=== PATIENT | male | born 1940 | race Caucasian/White ===

== ENCOUNTER 2021-03-25 05:05 | Inpatient (IN) | payer OTHER, MEDICARE ==
--- NOTE | 2021-03-25 05:36 | ED ---
Chest Pain HPI - General Chief Complaint: Chest Pain Stated Complaint: Chest Pain Time Seen by Provider: 03/25/21 05:14 Source: patient, EMS Mode of arrival: EMS Limitations: no limitations - History of Present Illness Initial Comments: This patient is an 80-year-old man who presents to be evaluate for epigastric chest pain that it started a number of hours ago. He describes as being gas- like, but states that it did not improve after he had belched and notes that it was relieved by nitroglycerin that EMS had given him. Patient did not have any associated anginal symptoms. MD Complaint: chest pain Onset/Timin -: hour(s) Onset: during rest Pain Location: epigastric Pain Radiation: none Severity: moderate Quality: other ("Like gas") Consistency: constant Improves With: nitroglycerin Worsens With: nothing Treatments Prior to Arrival: aspirin, nitroglycerin - Related Data Allergies Allergy/AdvReac Type Severity Reaction Status Date / Time Penicillins AdvReac Rash/Hives Verified 03/25/21 05:16 Review of Systems ROS Statement: Those systems with pertinent positive or pertinent negative responses have been documented in the HPI. ROS Other: All systems not noted in ROS Statement are negative. Constitutional: Denies: fever, chills Respiratory: Reports: as per HPI, cough (Chronic). Denies: dyspnea Cardiovascular: Reports: as per HPI, chest pain. Denies: palpitations, orthopnea, edema, syncope Gastrointestinal: Denies: abdominal pain, nausea, vomiting, diarrhea, constipation Genitourinary: Denies: dysuria Skin: Denies: rash Neurological: Denies: headache, weakness EKG Findings - EKG Results: EKG: interpreted by LEONIDAS, sinus rhythm (With PVC, rate 75 bpm) - Blocks, [place], Hypertrophy, ST Abn: AV and intraventricular conduction: 1 AV block, right bundle branch block (fixed/intermittent, complete/incomplete), left anterior fascicular block Past Medical History Past Medical History: Chest Pain / Angina, COPD, Hypertension Additional Past Medical History / Comment(s): at home 02 4lpm History of Any Multi-Drug Resistant Organisms: None Reported Past Surgical History: Hernia Repair Past Psychological History: No Psychological Hx Reported Smoking Status: Former smoker Past Alcohol Use History: Daily Past Drug Use History: None Reported General Exam Limitations: no limitations General appearance: alert, in no apparent distress Head exam: Present: atraumatic, normocephalic Eye exam: Present: normal appearance. Absent: scleral icterus, conjunctival injection ENT exam: Present: normal oropharynx Neck exam: Present: normal inspection Respiratory exam: Present: normal lung sounds bilaterally, rhonchi. Absent: respiratory distress, wheezes, rales, stridor Cardiovascular Exam: Present: regular rate, normal rhythm, normal heart sounds. Absent: systolic murmur, diastolic murmur, rubs, gallop GI/Abdominal exam: Present: soft, distended. Absent: tenderness, guarding, rebound, rigid, mass Extremities exam: Present: normal inspection, normal capillary refill. Absent: pedal edema, calf tenderness Back exam: Present: normal inspection. Absent: CVA tenderness (R), CVA tenderness (L) Neurological exam: Present: alert Skin exam: Present: warm, dry, intact, normal color. Absent: rash Course Vital Signs 03/25/21 03/25/21 03/25/21 05:07 05:16 06:58 Temperature 98.7 F Pulse Rate 75 73 Pulse Rate [ 76 Algologist ] Respiratory 18 16 Rate Blood Pressure 142/75 143/74 O2 Sat by Pulse 98 95 Oximetry Disposition Clinical Impression: Chest pain Disposition: ADMITTED IP TO THIS HOSP Condition: Fair Instructions (If sedation given, give patient instructions): Chest Pain (ED) Is patient prescribed a controlled substance at d/c from ED?: No Referrals: [facility],Clinic [Primary Care Provider] - 1-2 days
[2021-03-25 05:42] LABS: Basophils % (A) 0 %; Eosinophils # (A) 0.2 k/uL (0-0.7); Eosinophils % (A) 4 %; HCT 33.5 % (39.0-53.0); HGB 11.8 gm/dL (13.0-17.5); Lymphocytes # (A) 0.8 k/uL (1.0-4.8); Lymphocytes % (A) 15 %; MCH 33.1 pg (25.0-35.0); MCHC 35.2 g/dL (31.0-37.0); MCV 94.1 fL (80.0-100.0); Mean Platelet Volume 7.3; Monocytes # (A) 0.3 k/uL (0-1.0); Monocytes % (A) 5 %; Neutrophils % (A) 75 %; Platelet Count 173 k/uL (150-450); RBC 3.56 m/uL (4.30-5.90); RDW 12.8 % (11.5-15.5); WBC 5.4 k/uL (3.8-10.6)
[2021-03-25 05:49] LABS: INR 0.9 (<1.2); Prothrombin Time 10.1 sec (9.0-12.0)
[2021-03-25 05:50] LABS: Partial Thromboplastin Time 23.9 sec (22.0-30.0)
[2021-03-25 05:51] LABS: ALT 9 U/L (4-49); AST 17 U/L (17-59); African American GFR (CKD) >90 (>60 ml/min/1.73 sqM); Albumin 3.3 g/dL (3.5-5.0); Alkaline Phosphatase 67 U/L (38-126); Amylase 34 U/L (30-110); Anion Gap 6 mmol/L; Blood Urea Nitrogen 17 mg/dL (9-20); Calcium 8.5 mg/dL (8.4-10.2); Carbon Dioxide 30 mmol/L (22-30); Chloride 104 mmol/L (98-107); Glucose 157 mg/dL (74-99); Lipase 172 U/L (23-300); Magnesium 1.5 mg/dL (1.6-2.3); Non-African American GFR(CKD) 82 (>60 ml/min/1.73 sqM); Potassium 4.3 mmol/L (3.5-5.1); Sodium 140 mmol/L (137-145); Total Bilirubin 0.7 mg/dL (0.2-1.3); Total Protein 5.9 g/dL (6.3-8.2)
--- NOTE | 2021-03-25 06:13 | XR ---
EXAM: XR Chest, 1 View CLINICAL HISTORY: Chest pain. TECHNIQUE: Frontal view of the chest. COMPARISON: 10/01/2017. FINDINGS: Lungs: There is patchy airspace disease at the left lung base differential etiologies which include pneumonia. Pleural space: Unremarkable. No pneumothorax. Heart: Cardiomegaly. Mediastinum: Unremarkable. Bones/joints: Unremarkable. Upper abdomen: There is a lucency subtending the right hemidiaphragm. Free intra-abdominal air cannot be excluded. This finding is equivocal. Other findings: Patient is rotated right of midline. IMPRESSION: 1. Lucency is noted subtending what appears to represent the right hemidiaphragm. Small quantity of free intraperitoneal air cannot be excluded. This finding is equivocal. Reimaging with better inspiration and lateral view is advised. 2. Cardiomegaly. 3. Patchy airspace disease at the left lung base possibly on the basis of pneumonia. Clinical correlation is advised. 4. Osteopenia. <MYCVCSECTION> Communications: 03/25/21 06:14 Call Doctor Regarding Above results, called Dr. Lainez on 03/25 06:13 (-04:00)
--- NOTE | 2021-03-25 06:35 | XR ---
EXAM: XR Chest, 2 Views CLINICAL HISTORY: ITS.REASON XR Reason: chest pain TECHNIQUE: Frontal and lateral views of the chest. COMPARISON: Earlier single view the chest. FINDINGS: Lungs: Repeat AP and lateral views of the chest reveals subsegmental atelectasis at the lung bases. Pleural space: Unremarkable. No pneumothorax. Heart: Cardiomediastinal silhouette unremarkable. Mediastinum: See above. Bones/joints: Osteopenia. Upper abdomen: No evidence of free intra-abdominal air is noted in the repeat study. IMPRESSION: 1. No evidence of free intra-abdominal air on repeat evaluation could 2. Subsegmental atelectasis is noted at the lung bases. 3. Hypoaeration. 4. Osteopenia.
[2021-03-25] MEDS ORDERED: NITROGLYCERIN SL TABS 0.4 MG TAB SUBLINGUAL PRN (07:05)
--- NOTE | 2021-03-25 09:20 | P.CRDCN ---
History of Present Illness Consult date: 03/25/21 Chief complaint: Chest discomfort History of present illness: This is an 80-year-old gentleman with request to see as a consult here on the observation unit for chest discomfort. The patient is known to have coronary artery disease and he [facility] [place]. He never seen by any salt washer here. He underwent stenting with unknown details at this point and he stayed long time ago. This time she woke up from sleep complaining of is calm 4. He is pointing to the epigastric area. No pain in the chest. No shortness of breath or sweating or dizziness or lightheadedness or loss of consciousness or syncope. On examination he does have clearly epigastric discomfort. He stated that the pain in the epigastric area is radiating to his back. The patient stated that he drinks alcohol every day and he drinks 3 shots of whiskey every day. The epigastric discomfort could be secondary to pancreatitis. Primary care team is on the case. The first set of troponin came in to be unremarkable. 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 At this point we will rule out intra-abdominal process. We'll follow-up with the serial cardiac enzymes and will obtain an echocardiogram was Doppler. Past Medical History Past Medical History: Chest Pain / Angina, COPD, Hypertension Additional Past Medical History / Comment(s): at home 02 4lpm History of Any Multi-Drug Resistant Organisms: None Reported Past Surgical History: Hernia Repair Past Psychological History: No Psychological Hx Reported Smoking Status: Former smoker Past Alcohol Use History: Daily Past Drug Use History: None Reported Medications and Allergies Allergies Allergy/AdvReac Type Severity Reaction Status Date / Time Penicillins AdvReac Rash/Hives Verified 03/25/21 05:16 Physical Exam Vitals: Vital Signs Temp Pulse Pulse Pulse Resp BP BP 03/25/21 09:00 97.9 F 89 18 151/77 03/25/21 08:28 97.9 F 79 16 168/65 03/25/21 06:58 73 16 143/74 03/25/21 05:16 76 03/25/21 05:07 98.7 F 75 18 142/75 Pulse Ox 03/25/21 09:00 94 L 03/25/21 08:28 90 L 03/25/21 06:58 95 03/25/21 05:16 03/25/21 05:07 98 Intake and Output 03/24/21 03/25/21 03/25/21 22:59 06:59 14:59 Other: Weight 90.718 kg - Constitutional General appearance: no acute distress - Respiratory Respiratory: bilateral: rales - Cardiovascular Rhythm: regular Results 03/25/21 05:33 03/25/21 05:33 Cardiac Enzymes 03/25/21 03/25/21 Range/Units 05:33 05:33 AST 17 (17-59) U/L Troponin I <0.012 (0.000-0.034) ng/mL Coagulation 03/25/21 Range/Units 05:33 PT 10.1 (9.0-12.0) sec APTT 23.9 (22.0-30.0) sec CBC 03/25/21 Range/Units 05:33 WBC 5.4 (3.8-10.6) k/uL RBC 3.56 L (4.30-5.90) m/uL Hgb 11.8 L (13.0-17.5) gm/dL Hct 33.5 L (39.0-53.0) % Plt Count 173 (150-450) k/uL Comprehensive Metabolic Panel 03/25/21 Range/Units 05:33 Sodium 140 (137-145) mmol/L Potassium 4.3 (3.5-5.1) mmol/L Chloride 104 (98-107) mmol/L Carbon Dioxide 30 (22-30) mmol/L BUN 17 (9-20) mg/dL Creatinine 0.84 (0.66-1.25) mg/dL Glucose 157 H (74-99) mg/dL Calcium 8.5 (8.4-10.2) mg/dL AST 17 (17-59) U/L ALT 9 (4-49) U/L Alkaline Phosphatase 67 (38-126) U/L Total Protein 5.9 L (6.3-8.2) g/dL Albumin 3.3 L (3.5-5.0) g/dL Current Medications Generic Name Dose Route Start Last Admin Trade Name Freq PRN Reason Stop Dose Admin Aspirin 325 mg 03/26/21 09:00 Aspirin 325 Mg Tab PO DAILY PASQUALE Nitroglycerin 0.4 mg 03/25/21 07:05 Nitroglycerin Sl Tabs 0.4 Mg Tab SUBLINGUAL Q5M PRN Chest Pain Nitroglycerin 1 inch 03/25/21 12:00 Nitroglycerin Oint 1 Inch/Gm Packet TOPICAL Q6HR PASQUALE Intake and Output 03/24/21 03/25/21 03/25/21 22:59 06:59 14:59 Other: Weight 90.718 kg 03/25/21 05:33 03/25/21 05:33 Assessment and Plan Assessment: Assessment #1 epigastric discomfort. No chest pain or chest discomfort #2 coronary artery disease and prior stenting with unknown details #3 hypertension #4 excessive alcohol use Plan #1 rule out acute coronary event #2 rule out intra-abdominal process #3 follow-up with the serial cardiac enzymes #4 obtain an echocardiogram was Doppler #5 follow-up with the patient #6 start the patient on metoprolol succinate
[2021-03-25] MEDS: NITROGLYCERIN OINT 1 INCH/GM PACKET TOPICAL SCH ×3 (12:17→22:55)
[2021-03-25] MEDS: HYDROcodone/APAP 5-325MG 1 EACH TAB PO PRN ×2 (13:16→19:39)
[2021-03-25] MEDS: IOPAMIDOL CONTRAST (ORAL USE) VIAL PO PRN ×2 (13:21→14:13)
[2021-03-25] MEDS: IPRATROPIUM-ALBUTEROL 3 ML NEB INHALATION SCH ×2 (15:32→20:11)
--- NOTE | 2021-03-25 15:34 | CT ---
EXAMINATION TYPE: CT abdomen pelvis wo con DATE OF EXAM: 03/25/2021 COMPARISON: None HISTORY: Abdominal pain, Bloating, Epigastric pain, Discomfort CT DLP: 879.00 mGycm Automated exposure control for dose reduction was used. Images obtained from the diaphragm to the floor the pelvis with oral contrast only. There is some patchy atelectasis at the lung bases. There is no pericardial effusion. Heart is probab ly enlarged. There is no pleural effusion. There is 1 cm cyst in the right lobe of the liver. There is 2 cm cyst in the anterior right lobe of t he liver. There are calcified gallstones. Spleen is intact. Stomach is intact. There is no pancreatic mass. The bile ducts are not dilated. There is no adrenal mass. There is 8 cm cortical cyst lower pole right kidney. There is no hydronephr osis. Ureters are not dilated. There is no retroperitoneal adenopathy. Abdominal aorta is atheromatou s. There is irregular enlargement of the urinary bladder. Bladder measures 19 cm. Prostate is mildly enlarged and measures 5.5 cm. There is no inguinal hernia. There is no free fluid in the pelvis. There are multiple sigmoid diverticula. There is no diverticulitis. There are clips at the cecum. Daniel endix is not seen. There is no mesenteric edema. There is no ascites or free air. There is no bowel obstruction. IMPRESSION: Dilated urinary bladder suggestive of bladder or obstruction. No renal obstruction. Patchy atelectasis at the lung bases. Sigmoid diverticulosis. Cholelithiasis.
[2021-03-25] MEDS: LOSARTAN 50 MG TAB PO SCH (15:50)
[2021-03-25] MEDS: ASCORBIC ACID 500 MG TAB PO SCH ×2 (15:50→20:02)
[2021-03-25] MEDS: amLODIPine 5 MG TAB PO SCH (15:51)
[2021-03-25] MEDS: FUROSEMIDE 20 MG TAB PO SCH (15:51)
[2021-03-25] MEDS: glipiZIDE 5 MG TAB PO SCH (17:36)
--- NOTE | 2021-03-25 18:14 | P.HPIM ---
History of Present Illness H&P Date: 03/25/21 Chief Complaint: Epigastric pain Mr. 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 Patient states that he started to have pain in his epigastric area early this morning, he describes like a discomfort feeling that would make him belch in his epigastric area. Denies having any nausea or vomiting. He denies having any lower abdominal pain. Patient states that he has history of ventral hernia. He denies having any constipation or diarrhea. He did not report any aggravating or relieving factors. Pain has been constant in the epigastric area. He denies having any difficulty in breathing. Patient has COPD and is on 4 L of oxygen at home. He denies having any sick contacts. Denies having any swelling of his lower extremities. No orthopnea or PND. He states recently he has lost his appetite and was told by the [facility] to get a CAT scan of the abdomen and pelvis. Patient denies having any loss of consciousness or syncopal episodes. Denies having any headaches blurring of vision or weakness of his extremities. In the ER, patient's vital signs temperature 98.7, heart rate 75, respiratory 18, blood pressure 142/75, saturating at 98% on the 4 L of oxygen. On reviewing his labs white count of 5.4, hemoglobin 9.8, platelets 173. Sodium 140, potassium 4.3, chloride 104, bicarb 30, BUN 17, creatinine 0.84, magnesium 1.5, AST 17, AlT 9, albumin 3.3, amylase 34, lipase 172. Coronary wires PCR is negative. Troponins 2 less than 0.012. 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 Review of Systems CONSTITUTIONAL: Loss of appetite recently HEENT: No recent visual problems or hearing problems. Denied any sore throat. CARDIOVASCULAR: As per HPI PULMONARY: No shortness of breath, no cough, no hemoptysis. GASTROINTESTINAL: As per HPI NEUROLOGICAL: No headaches, no weakness, no numbness. HEMATOLOGICAL: Denies any bleeding or petechiae. GENITOURINARY: Denies any burning micturition, frequency, or urgency. MUSCULOSKELETAL/RHEUMATOLOGICAL: Denies any joint pain, swelling, or any muscle pain. ENDOCRINE: Denies any polyuria or polydipsia. PSYC: No depression or anxiety All 13 review of systems done and negative except for the ones mentioned above Past Medical History Past Medical History: Chest Pain / Angina, COPD, Hypertension Additional Past Medical History / Comment(s): at home 02 4lpm History of Any Multi-Drug Resistant Organisms: None Reported Past Surgical History: Hernia Repair Past Psychological History: No Psychological Hx Reported Smoking Status: Former smoker Past Alcohol Use History: Daily Past Drug Use History: None Reported Medications and Allergies Home Medications Medication Instructions Recorded Confirmed Type Ascorbic Acid [Vitamin C] 250 mg PO BID 03/25/21 03/25/21 History Aspirin EC [Ecotrin Low Dose] 81 mg PO DAILY 03/25/21 03/25/21 History Atorvastatin [Lipitor] 80 mg PO HS 03/25/21 03/25/21 History Carvedilol [Coreg] 12.5 mg PO AC-BID 03/25/21 03/25/21 History Cyanocobalamin (Vitamin B-12) 1,000 mcg PO DAILY 03/25/21 03/25/21 History [Vitamin B-12] Diclofenac Sodium [Voltaren Gel] 1 applic TOPICAL TID PRN 03/25/21 03/25/21 History Ferrous Sulfate [Feosol] 325 mg PO BID 03/25/21 03/25/21 History Fluticasone Propion/Salmeterol 1 puff INHALATION RT-BID 03/25/21 03/25/21 History [Fluticasone-Salmeterol 250-50] Furosemide [Lasix] 20 mg PO DAILY 03/25/21 03/25/21 History Ipratropium-Albuterol Nebulize 3 ml INHALATION RT-QID 03/25/21 03/25/21 History [Duoneb 0.5 mg-3 mg/3 ml Soln] Ketoconazole 2% Shampoo [Nizoral] 1 applic TOPICAL MOWEFR 03/25/21 03/25/21 History Losartan Potassium 100 mg PO DAILY 03/25/21 03/25/21 History Montelukast [Singulair] 10 mg PO HS 03/25/21 03/25/21 History [place]-3 Fatty Acids/Fish Oil [Fish 1 cap PO DAILY 03/25/21 03/25/21 History Oil 1,000 mg Softgel] Pantoprazole Sodium [Protonix] 40 mg PO BID 03/25/21 03/25/21 History Tiotropium [place] [Spiriva 2 puff INHALATION RT-DAILY 03/25/21 03/25/21 History Respimat] Vit C/E/Zn/Coppr/Lutein/Zeaxan 1 cap PO BID 03/25/21 03/25/21 History [Preservision Areds 2 Softgel] amLODIPine [Norvasc] 5 mg PO DAILY 03/25/21 03/25/21 History glipiZIDE [Glucotrol] 5 mg PO AC-BID 03/25/21 03/25/21 History metFORMIN HCL 1,000 mg PO BID 03/25/21 03/25/21 History Allergies Allergy/AdvReac Type Severity Reaction Status Date / Time Penicillins AdvReac Rash/Hives Verified 03/25/21 10:19 Physical Exam Vitals: Vital Signs Temp Pulse Pulse Pulse Resp BP BP 03/25/21 09:00 97.9 F 89 18 151/77 03/25/21 08:28 97.9 F 79 16 168/65 03/25/21 06:58 73 16 143/74 03/25/21 05:16 76 03/25/21 05:07 98.7 F 75 18 142/75 Pulse Ox 03/25/21 09:00 94 L 03/25/21 08:28 90 L 03/25/21 06:58 95 03/25/21 05:16 03/25/21 05:07 98 Intake and Output 03/24/21 03/25/21 03/25/21 22:59 06:59 14:59 Other: Weight 90.718 kg PHYSICAL EXAMINATION GENERAL: The patient is alert and oriented x3, not in any acute distress. HEENT: Pupils are round and equally reacting to light. EOMI. No scleral icterus. no conjunctival pallor. Normocephalic, atraumatic. No pharyngeal erythema. No thyromegaly. CARDIOVASCULAR: S1 and S2 present. No murmurs, rubs, or gallops. PULMONARY: Chest is clear to auscultation. No wheezing. Diminished of the lower lung bases. ABDOMEN: Distended. Soft, nontender, normoactive bowel sounds. Large ventral hernia. No fluid thrill appreciated. MUSCULOSKELETAL: No joint swelling or deformity. EXTREMITIES: No cyanosis, clubbing, or pedal edema. NEUROLOGICAL: Gross neurological examination did not reveal any focal deficits. Results CBC & Chem 7: 03/25/21 05:33 03/25/21 05:33 Labs: Abnormal Lab Results - Last 24 Hours (Table) 03/25/21 03/25/21 Range/Units 05:33 05:33 RBC 3.56 L (4.30-5.90) m/uL Hgb 11.8 L (13.0-17.5) gm/dL Hct 33.5 L (39.0-53.0) % Lymphocytes # 0.8 L (1.0-4.8) k/uL Glucose 157 H (74-99) mg/dL Magnesium 1.5 L (1.6-2.3) mg/dL Total Protein 5.9 L (6.3-8.2) g/dL Albumin 3.3 L (3.5-5.0) g/dL Assessment and Plan Assessment: ASSESSMENT Epigastric discomfort Chronic hypoxic respiratory failure on 4 L of oxygen at home COPD Hypomagnesemia Coronary artery disease status post stenting Hypertension Alcohol use disorder History of colectomy Mild protein calorie malnutrition PLAN: Patient is monitored for serial troponins and EKGs. 2-D echocardiogram ordered. As the patient has been complaining of loss of appetite and epigastric discomfort, will order a CAT scan of the abdomen and pelvis. Patient has been restarted on his home medications. Continue with breathing treatments. Symptomatic management of the epigastric pain - continue with [place] and PPI. DVT prophylaxis. Further recommendations to follow depending on the progress of the patient. The treatment plan was discussed in detail with the patient and his family members at bedside.
[2021-03-25] MEDS: MONTELUKAST 10 MG TAB PO SCH (19:40)
[2021-03-25] MEDS: PANTOPRAZOLE 40 MG TABLET PO SCH (19:40)
[2021-03-25] MEDS: FERROUS SULFATE 325 MG TAB PO SCH (19:40)
[2021-03-25] MEDS: ATORVASTATIN 80 MG TAB PO SCH (19:40)
[2021-03-25] MEDS: VIT A,C & E-LUTEIN-MINERALS 1 EACH TAB PO SCH (20:02)
[2021-03-25] MEDS: SYMBICORT 80-4.5 MCG INHALER INHALATION SCH (20:11)
[2021-03-26] MEDS: NITROGLYCERIN OINT 1 INCH/GM PACKET TOPICAL SCH (04:43)
[2021-03-26] MEDS: HYDROcodone/APAP 5-325MG 1 EACH TAB PO PRN ×2 (06:34→15:40)
[2021-03-26] MEDS: SYMBICORT 80-4.5 MCG INHALER INHALATION SCH ×2 (07:21→18:57)
[2021-03-26] MEDS: IPRATROPIUM-ALBUTEROL 3 ML NEB INHALATION SCH ×4 (07:21→18:57)
[2021-03-26] MEDS: FUROSEMIDE 20 MG TAB PO SCH (07:56)
[2021-03-26] MEDS: LOSARTAN 50 MG TAB PO SCH (07:56)
[2021-03-26] MEDS: VIT A,C & E-LUTEIN-MINERALS 1 EACH TAB PO SCH ×2 (07:56→20:53)
[2021-03-26] MEDS: ENOXAPARIN 40 MG/0.4 ML SYRINGE SQ SCH (07:56)
[2021-03-26] MEDS: CYANOCOBALAMIN 500 MCG TAB PO SCH (07:57)
[2021-03-26] MEDS: glipiZIDE 5 MG TAB PO SCH ×2 (07:57→17:51)
[2021-03-26] MEDS: PANTOPRAZOLE 40 MG TABLET PO SCH ×2 (07:57→20:54)
[2021-03-26] MEDS: ASCORBIC ACID 500 MG TAB PO SCH ×2 (07:57→20:53)
[2021-03-26] MEDS: amLODIPine 5 MG TAB PO SCH (07:57)
[2021-03-26] MEDS: FERROUS SULFATE 325 MG TAB PO SCH ×2 (07:57→20:54)
[2021-03-26] MEDS: NON FORMULARY DRUG (Omega-3 Fatty Acids/Fish Oil [Fish Oil 1,000 Mg Softgel] 1 EACH Capsul PO SCH (07:58)
[2021-03-26] MEDS ORDERED: NON FORMULARY DRUG (Tiotropium Bromide [Spiriva Respimat] 4 GM Mist.Inhal) INHALATION SCH (08:00)
[2021-03-26] MEDS: METOPROLOL SUCCINATE (ER) 25 MG TAB.ER.24H PO SCH (08:01)
[2021-03-26 08:48] LABS: HCT 33.4 % (39.6-50.0); HGB 10.9 g/dL (13.0-17.0); MCHC 32.6 g/dL (32.0-37.0); MCV 97.9 fL (80.0-97.0); Mean Platelet Volume 10.3 fL (9.5-12.2); Platelet Count 157 X 10*3/uL (140-440); RBC 3.41 X 10*6/uL (4.40-5.60); RDW 12.6 % (11.5-14.5); WBC 9.01 X 10*3/uL (4.50-10.00)
[2021-03-26] MEDS ORDERED: NON FORMULARY DRUG (Aspirin Ec 81 MG Tablet.Dr) PO SCH (09:00)
[2021-03-26] MEDS ORDERED: ASPIRIN 325 MG TAB PO SCH (09:00)
[2021-03-26 09:25] LABS: African American GFR (CKD) 91.9 (60.0-200.0); Albumin 3.4 g/dL (3.80-4.90); Albumin/Globulin Ratio 1.62 (1.60-3.17); BUN/Creat Ratio 16.67 Ratio (12.00-20.00); Calcium 8.3 mg/dL (8.7-10.3); Chol/HDL Ratio 2.93; Globulin 2.1 g/dL (1.6-3.3); LDL Cholesterol,Calculated 40.8 mg/dL (0.0-131.0); Non-African American GFR(CKD) 79.3 (60.0-200.0); Potassium 4.1 mmol/L (3.5-5.5); Total Bilirubin 1.7 mg/dL (0.2-1.2); Total Protein 5.5 g/dL (6.2-8.2); VLDL Calculation 17.2 mg/dL (5.00-40.00)
[2021-03-26 09:33] LABS: Basophils # (A) 0.02 X 10*3/uL (0.00-0.10); Basophils % (A) 0.2 %; Eosinophils # (A) 0.09 X 10*3/uL (0.04-0.35); Lymphocytes # (A) 0.91 X 10*3/uL (0.90-5.00); Lymphocytes % (A) 10.1 %; Monocytes % (A) 8.9 %; Neutrophils # (A) 7.16 X 10*3/uL (1.80-7.70); Neutrophils % (A) 79.5 %
--- NOTE | 2021-03-26 11:58 | P.PN ---
Subjective Progress Note Date: 03/26/21 HISTORY OF PRESENT ILLNESS: This is an 80-year-old gentleman with request to see as a consult here on the observation unit for chest discomfort. The patient is known to have coronary artery disease and he follows up at the [place] [facility] in [place]. He never seen by any ultrasonic seaming machine operator here. He underwent stenting with unknown details at this point and he stayed long time ago. This time she woke up from sleep complaining of is calm 4. He is pointing to the epigastric area. No pain in the chest. No shortness of breath or sweating or dizziness or lightheadedness or loss of consc iousness or syncope. On examination he does have clearly epigastric discomfort. He stated that the pain in the epigastric area is radiating to his back. The patient stated that he drinks alcohol every day and he drinks 3 shots of whiskey every day. The epigastric discomfort could be secondary to pancreatitis. Primary care team is on the case. The first set of troponin came in to be unremarkable. 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 At this point we will rule out intra-abdominal process. We'll follow-up with the serial cardiac enzymes and will obtain an echocardiogram was Doppler. 03/26/2021 Patient examined this morning. He is sitting on the side of the bed. He reports epigastric discomfort. He is hungry and asking for breakfast. He denies chest pain or pressure. Denies shortness of breath. Vital signs are stable. PHYSICAL EXAM: VITAL SIGNS: Reviewed. GENERAL: Well-developed in no acute distress. NECK: Supple. No JVD or thyromegaly LUNGS: Respirations even and unlabored. Lungs essentially clear to auscultation bilaterally. HEART: Regular rate and rhythm. S1 and S2 heard. EXTREMITIES: Normal range of motion. No clubbing or cyanosis. Peripheral pulses intact. No lower extremity edema ASSESSMENT: Epigastric pain Coronary artery disease with previous PCI, exact details unknown Hypertension Alcohol abuse Chronic hypoxic respiratory failure on home oxygen COPD PLAN: Continue current cardiac medications 2D echo ordered. Await results If echo is normal, no further inpatient workup from a cardiac standpoint Nurse practitioner note has been reviewed by physician. Signing provider agrees with the documented findings, assessment, and plan of care. Objective - Vital Signs Vital signs: Vital Signs Temp 98.7 F 03/26/21 06:45 Pulse 74 03/26/21 11:04 Resp 16 03/26/21 06:45 BP 131/67 03/26/21 06:45 Pulse Ox 94 L 03/26/21 06:45 Intake & Output 03/25/21 03/26/21 03/26/21 18:59 06:59 18:59 Weight 90.718 kg Other: Voiding Method Toilet # Voids 2 1 - Labs CBC & Chem 7: 03/26/21 05:44 03/26/21 05:44 Labs: Abnormal Lab Results - Last 24 Hours (Table) 03/26/21 03/26/21 Range/Units 05:44 05:44 RBC 3.41 L (4.40-5.60) X 10*6/uL Hgb 10.9 L (13.0-17.0) g/dL Hct 33.4 L (39.6-50.0) % MCV 97.9 H (80.0-97.0) fL Glucose 128 H (70-110) mg/dL Calcium 8.3 L (8.7-10.3) mg/dL Total Bilirubin 1.7 H (0.2-1.2) mg/dL Total Protein 5.5 L (6.2-8.2) g/dL Albumin 3.40 L (3.80-4.90) g/dL HDL Cholesterol 30.0 L (40.0-60.0) mg/dL
--- NOTE | 2021-03-26 12:01 | ECHOF ---
Referral Reason: MEASUREMENTS -------- HEIGHT: 175.3 cm WEIGHT: 90.7 kg BP: 112/64 RVIDd: 3.7 cm (< 3.3) IVSd: 1.1 cm (0.6 - 1.1) LVIDd: 6.0 cm (3.9 - 5.3) LVPWd: 1.3 cm (0.6 - 1.1) IVSs: 1.7 cm LVIDs: 5.1 cm LVPWs: 1.5 cm LAESV Index (A-L): 38.45 ml/m Ao Diam: 3.8 cm (2.0 - 3.7) AV Cusp: 1.8 cm (1.5 - 2.6) LA Diam: 4.6 cm (2.7 - 3.8) MV EXCURSION: 21.085 mm (> 18.000) MV EF SLOPE: 100 mm/s (70 - 150) EPSS: 2.0 cm RAP: 5.00 mmHg RVSP: 19.39 mmHg FINDINGS -------- Atrial fibrillation. This was a technically adequate study. The left ventricular size is normal. Left ventricular wall thickness is normal. There is severe g lobal hypokinesis of LV . Overall left ventricular systolic function is severely impaired with, an EF between 20 - 25 %. The right ventricle is normal in size. LA is moderately dilated 34-39 ml/m2 The right atrial size is normal. There is mild aortic valve sclerosis. There is no evidence of aortic regurgitation. Mild mitral annular calcification present. Mild mitral regurgitation is present. The tricuspid valve appears structurally normal. Mild tricuspid regurgitation present. Right vent ricular systolic pressure is normal at < 35 mmHg. The pulmonic valve was not well visualized. There is no pulmonic regurgitation present. The aortic root size is normal. There is no pericardial effusion. CONCLUSIONS -------- 1. Left ventricular wall thickness is normal. 2. There is severe global hypokinesis of LV . 3. Overall left ventricular systolic function is severely impaired with, an EF between 20 - 25 %. 4. LA is moderately dilated 34-39 ml/m2 5. There is mild aortic valve sclerosis. 6. Mild mitral regurgitation is present. 7. Mild tricuspid regurgitation present. 8. There is no pericardial effusion. DIGITAL CAMPAIGN MANAGER: Haven Kenyon RDCS
[2021-03-26 15:50] LABS: Glucose,Whole Blood 216 mg/dL (75-99)
[2021-03-26 16:27] LABS: Appearance,Urine Clear (Clear); Bilirubin,Urine Negative (Negative); Blood,Urine Negative (Negative); Color,Urine Yellow; Glucose,Urine (UA) 1+ (Negative); Ketones,Urine Negative (Negative); Leukocyte Esterase,Urine Negative (Negative); Nitrite,Urine Negative (Negative); Protein,Urine 1+ (Negative); Specific Gravity,Urine 1.015 (1.001-1.035); Urobilinogen,Urine <0.2 mg/dL (<2.0)
[2021-03-26 16:30] LABS: RBC,Urine 2 /hpf (0-5); WBC,Urine 1 /hpf (0-5)
--- NOTE | 2021-03-26 16:57 | P.PN ---
Subjective Progress Note Date: 03/26/21 Principal diagnosis: New onset CHF Mr. 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 Patient states that he started to have pain in his epigastric area early this morning, he describes like a discomfort feeling that would make him belch in his epigastric area. Denies having any nausea or vomiting. He denies having any lower abdominal pain. Patient states that he has history of ventral hernia. He denies having any constipation or diarrhea. He did not report any aggravating or relieving factors. Pain has been constant in the epigastric area. He denies having any difficulty in breathing. Patient has COPD and is on 4 L of oxygen at home. He denies having any sick contacts. Denies having any swelling of his lower extremities. No orthopnea or PND. He states recently he has lost his appetite [facility] the [facility] and pelvis. Patient denies having any loss of consciousness or syncopal episodes. Denies having any headaches blurring of vision or weakness of his extremities. In the ER, patient's vital signs temperature 98.7, heart rate 75, respiratory 18, blood pressure 142/75, saturating at 98% on the 4 L of oxygen. On reviewing his labs white count of 5.4, hemoglobin 9.8, platelets 173. Sodium 140, potassium 4.3, chloride 104, bicarb 30, BUN 17, creatinine 0.84, magnesium 1.5, AST 17, AlT 9, albumin 3.3, amylase 34, lipase 172. Coronary wires PCR is negative. Troponins 2 less than 0.012. 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 On 03/26/2021 - patient is sitting up in the bedside appears to be no acute distress. Patient states that he still has mild epigastric discomfort. He states that not quite is helping him with his low back pain as well. He states that his difficulty in breathing effort as baseline. He denies having any chest pain or palpitations. No complaints of orthopnea or PND. He denies having any swelling of his lower extremities. Patient denies having any lower abdominal pain nausea vomiting or diarrhea. He denies having any dysuria or hematuria. On reviewing his vitals temperature 98.5, heart rate 80s to 100s, blood pressure 178/88, saturating about 90 on 4 L of oxygen. On reviewing his labs white count of 9, hemoglobin is 10.9, platelets of 157. Sodium is 136, but pressure 4.1, chloride 101, bicarbonate 29, BUN 15, creatinine 0.9. Urine analysis is positive for 1+ protein and negative for nitrates and leukocyte esterase. Patient had a CAT scan of the abdomen and pelvis showing dilated urinary bladder and mildly enlarged prostate at 5.5 cm. There is a regular enlargement of the urinary bladder. He had echocardiogram done this morning showing left ventricular systolic function ejection fraction 20-25%. Patient's medications reviewed- amlodipine, ascorbic acid, aspirin, Lipitor, Symbicort, vitamin B12, Lovenox, ferrous sulfate, Lasix, glipizide, [place], losartan, metoprolol, Singulair, Nitrostat, Protonix, multivitamin supplements Objective - Vital Signs Vital signs: Vital Signs Temp 98.7 F 03/26/21 06:45 Pulse 74 03/26/21 11:04 Resp 16 03/26/21 06:45 BP 131/67 03/26/21 06:45 Pulse Ox 94 L 03/26/21 06:45 Intake & Output 03/25/21 03/26/21 03/26/21 18:59 06:59 18:59 Weight 90.718 kg Other: Voiding Method Toilet # Voids 2 1 - Exam PHYSICAL EXAMINATION GENERAL: The patient is alert and oriented x3, not in any acute distress. HEENT: Pupils are round and equally reacting to light. EOMI. No scleral icterus. no conjunctival pallor. CARDIOVASCULAR: S1 and S2 present. No murmurs, rubs, or gallops. PULMONARY: Chest is clear to auscultation. No wheezing. Diminished of the lower lung bases. ABDOMEN: Distended. Soft, nontender, normoactive bowel sounds. Large ventral hernia. No fluid thrill appreciated. MUSCULOSKELETAL: No joint swelling or deformity. EXTREMITIES: No cyanosis, clubbing, or pedal edema. NEUROLOGICAL: Gross neurological examination did not reveal any focal deficits. - Labs CBC & Chem 7: 03/26/21 05:44 03/26/21 05:44 Labs: Abnormal Lab Results - Last 24 Hours (Table) 03/26/21 03/26/21 Range/Units 05:44 05:44 RBC 3.41 L (4.40-5.60) X 10*6/uL Hgb 10.9 L (13.0-17.0) g/dL Hct 33.4 L (39.6-50.0) % MCV 97.9 H (80.0-97.0) fL Glucose 128 H (70-110) mg/dL Calcium 8.3 L (8.7-10.3) mg/dL Total Bilirubin 1.7 H (0.2-1.2) mg/dL Total Protein 5.5 L (6.2-8.2) g/dL Albumin 3.40 L (3.80-4.90) g/dL HDL Cholesterol 30.0 L (40.0-60.0) mg/dL Assessment and Plan Assessment: ASSESSMENT New onset congestive heart failure ejection fraction 20-25% Chronic hypoxic respiratory failure on 4 L of oxygen at home COPD Hypomagnesemia Coronary artery disease status post stenting Hypertension Alcohol use disorder History of colectomy Mild protein calorie malnutrition Enlarged prostate at 5.5 cm Urinary bladder thickening on CAT scan of the abdomen/pelvis PLAN: Patient had a CAT scan of the abdomen and pelvis done yesterday showing bladder wall thickening and enlarged prostate at 5.5 cm. Patient has history of prostate cancer treated with radiation in the past, PSA ordered and is pending currently. Patient had an echocardiogram done this morning showing ejection fraction of 20-25%, that is new. Cardiology on board and to follow up on the e cho results- he will need workup for new onset CHF. Patient's daughter called in for updated, I spoke with her over the phone and discussed the results of the CAT scan and also echocardiogram in detail with her,all questions were answered to her satisfaction. Patient to be continued on current medication regimen. Further recommendations to follow depending on the progress of the patient.
[2021-03-26] MEDS: ATORVASTATIN 80 MG TAB PO SCH (20:54)
[2021-03-26] MEDS: MONTELUKAST 10 MG TAB PO SCH (20:54)
[2021-03-26] MEDS ORDERED: DILTIAZEM ORAL 30 MG TAB PO STA (22:57)
[2021-03-27 07:25] LABS: Glucose,Whole Blood 180 mg/dL (75-99)
[2021-03-27] MEDS: SYMBICORT 80-4.5 MCG INHALER INHALATION SCH ×2 (07:40→19:29)
[2021-03-27] MEDS: IPRATROPIUM-ALBUTEROL 3 ML NEB INHALATION SCH ×4 (07:40→19:29)
[2021-03-27] MEDS: CYANOCOBALAMIN 500 MCG TAB PO SCH (07:42)
[2021-03-27] MEDS: PANTOPRAZOLE 40 MG TABLET PO SCH ×2 (07:43→20:24)
[2021-03-27] MEDS: glipiZIDE 5 MG TAB PO SCH ×2 (07:43→17:42)
[2021-03-27] MEDS: amLODIPine 5 MG TAB PO SCH (07:43)
[2021-03-27] MEDS: VIT A,C & E-LUTEIN-MINERALS 1 EACH TAB PO SCH ×2 (07:43→23:16)
[2021-03-27] MEDS: NON FORMULARY DRUG (Omega-3 Fatty Acids/Fish Oil [Fish Oil 1,000 Mg Softgel] 1 EACH Capsul PO SCH (07:43)
[2021-03-27] MEDS: FERROUS SULFATE 325 MG TAB PO SCH ×2 (07:43→20:24)
[2021-03-27] MEDS: FUROSEMIDE 20 MG TAB PO SCH (07:43)
[2021-03-27] MEDS: ASPIRIN 81 MG PO SCH (07:43)
[2021-03-27] MEDS: METOPROLOL SUCCINATE (ER) 25 MG TAB.ER.24H PO SCH ×2 (07:43→20:24)
[2021-03-27] MEDS: ENOXAPARIN 40 MG/0.4 ML SYRINGE SQ SCH (07:44)
[2021-03-27] MEDS: LOSARTAN 50 MG TAB PO SCH (07:44)
[2021-03-27] MEDS: ASCORBIC ACID 500 MG TAB PO SCH ×2 (07:44→20:24)
[2021-03-27 10:23] LABS: Basophils # (A) 0.02 X 10*3/uL (0.00-0.10); Basophils % (A) 0.2 %; Eosinophils # (A) 0 X 10*3/uL (0.04-0.35); Eosinophils % (A) 0 %; HCT 32.6 % (39.6-50.0); HGB 10.9 g/dL (13.0-17.0); Lymphocytes # (A) 0.37 X 10*3/uL (0.90-5.00); Lymphocytes % (A) 3.3 %; MCH 32.3 pg (27.0-32.0); MCHC 33.4 g/dL (32.0-37.0); MCV 96.7 fL (80.0-97.0); Mean Platelet Volume 10.8 fL (9.5-12.2); Monocytes # (A) 0.76 X 10*3/uL (0.20-1.00); Monocytes % (A) 6.8 %; Neutrophils # (A) 9.89 X 10*3/uL (1.80-7.70); Neutrophils % (A) 88.9 %; Platelet Count 164 X 10*3/uL (140-440); RBC 3.37 X 10*6/uL (4.40-5.60); RDW 12.7 % (11.5-14.5); WBC 11.13 X 10*3/uL (4.50-10.00)
[2021-03-27 10:46] LABS: African American GFR (CKD) 64.9 (60.0-200.0); BUN/Creat Ratio 15.83 Ratio (12.00-20.00); Calcium 8.8 mg/dL (8.7-10.3); Potassium 3.7 mmol/L (3.5-5.5)
--- NOTE | 2021-03-27 11:14 | P.PN ---
Subjective Progress Note Date: 03/27/21 HISTORY OF PRESENT ILLNESS: This is an 80-year-old gentleman with request to see as a consult here on the observation unit for chest discomfort. The patient is known to have coronary artery disease and he follows up at the [facility] in [place]. He never seen by any gut sorter here. He underwent stenting with unknown details at this point and he stayed long time ago. This time she woke up from sleep complaining of is calm 4. He is pointing to the epigastric area. No pain in the chest. No shortness of breath or sweating or dizziness or lightheadedness or loss of consc iousness or syncope. On examination he does have clearly epigastric discomfort. He stated that the pain in the epigastric area is radiating to his back. The patient stated that he drinks alcohol every day and he drinks 3 shots of whiskey every day. The epigastric discomfort could be secondary to pancreatitis. Primary care team is on the case. The first set of troponin came in to be unremarkable. 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 At this point we will rule out intra-abdominal process. We'll follow-up with the serial cardiac enzymes and will obtain an echocardiogram was Doppler. 03/26/2021 Patient examined this morning. He is sitting on the side of the bed. He reports epigastric discomfort. He is hungry and asking for breakfast. He denies chest pain or pressure. Denies shortness of breath. Vital signs are stable. 03/27/2021 Patient examined this morning at the bedside. Patient states his epigastric pain has improved. He denies shortness of breath. Denies chest pain or pressure. Echocardiogram completed reveals ejection fraction 20-25%, severe global hypokinesis of LV, mild mitral regurgitation, and mild tricuspid regurgitation. Discussed echo findings with patient who states his gut sorter at the [facility] has told him he has a "weak heart". Patient also states "I think he put me on medications because my heart is weak". Patient was tachycardic overnight. He was given PO cardizem per internal medicine. Telemetry and EKGs reviewed with Dr. Ornelas revealing sinuc mechanism with PACs and PVCs. No atrial fibrillation noted. Patient does report a history of his heart "skipping a beat" but denies history of atrial fibrillation. PHYSICAL EXAM: VITAL SIGNS: Reviewed. GENERAL: Well-developed in no acute distress. NECK: Supple. No JVD or thyromegaly LUNGS: Respirations even and unlabored. Lungs essentially clear to auscultation bilaterally. HEART: Regular rate and rhythm. S1 and S2 heard. EXTREMITIES: Normal range of motion. No clubbing or cyanosis. Peripheral pulses intact. No lower extremity edema ASSESSMENT: Epigastric pain Coronary artery disease with previous PCI, exact details unknown Hypertension Alcohol abuse Chronic hypoxic respiratory failure on home oxygen COPD Ischemic cardiomyopathy PLAN: Discontinue Norvasc Increase Metoprolol to BID dosing Avoid cardizem due to patients cardiomyopathy Continue additional cardiac medications Continue telemetry monitoring Results requested from [facility] yesterday but have not yet received them Further recommendations pending patient course Nurse practitioner note has been reviewed by physician. Signing provider agrees with the documented findings, assessment, and plan of care. Objective - Vital Signs Vital signs: Vital Signs Temp 97.6 F 03/27/21 08:51 Pulse 76 03/27/21 08:51 Resp 20 03/27/21 08:51 BP 96/52 03/27/21 08:51 Pulse Ox 96 03/27/21 08:51 Intake & Output 03/26/21 03/27/21 03/27/21 18:59 06:59 18:59 Output Total 1900 1700 Balance -1900 -1700 Output: Urine 1900 1700 Straight 1900 650 Other: Voiding Method Indwelling Catheter Indwelling Catheter # Voids 2 # Bowel Movements 0 - Labs CBC & Chem 7: 03/27/21 04:19 03/27/21 04:19 Labs: Abnormal Lab Results - Last 24 Hours (Table) 03/26/21 03/26/21 03/27/21 Range/Units 15:36 15:45 04:19 WBC 11.13 H (4.50-10.00) X 10*3/uL RBC 3.37 L (4.40-5.60) X 10*6/uL Hgb 10.9 L (13.0-17.0) g/dL Hct 32.6 L (39.6-50.0) % MCH 32.3 H (27.0-32.0) pg Immature Gran # 0.09 H (0.00-0.04) X 10*3/uL Neutrophils # 9.89 H (1.80-7.70) X 10*3/uL Lymphocytes # 0.37 L (0.90-5.00) X 10*3/uL Eosinophils # 0 L (0.04-0.35) X 10*3/uL Est GFR (CKD-EPI)NonAf (60.0-200.0) Glucose (70-110) mg/dL POC Glucose (mg/dL) 216 H (75-99) mg/dL Urine Protein 1+ H (Negative) Urine Glucose (UA) 1+ H (Negative) 03/27/21 03/27/21 Range/Units 04:19 07:13 WBC (4.50-10.00) X 10*3/uL RBC (4.40-5.60) X 10*6/uL Hgb (13.0-17.0) g/dL Hct (39.6-50.0) % MCH (27.0-32.0) pg Immature Gran # (0.00-0.04) X 10*3/uL Neutrophils # (1.80-7.70) X 10*3/uL Lymphocytes # (0.90-5.00) X 10*3/uL Eosinophils # (0.04-0.35) X 10*3/uL Est GFR (CKD-EPI)NonAf 56.0 L (60.0-200.0) Glucose 166 H (70-110) mg/dL POC Glucose (mg/dL) 180 H (75-99) mg/dL Urine Protein (Negative) Urine Glucose (UA) (Negative)
[2021-03-27] MEDS: HYDROcodone/APAP 5-325MG 1 EACH TAB PO PRN ×2 (11:58→16:23)
--- NOTE | 2021-03-27 13:20 | XR ---
EXAMINATION TYPE: XR chest 2V DATE OF EXAM: 03/27/2021 COMPARISON: Chest x-ray 03/25/2021 HISTORY: Difficulty breathing, shortness of breath TECHNIQUE: Frontal and lateral views of the chest are obtained. FINDINGS: Interstitium is increased. There is no evident pneumothorax or pleural effusion. Patient i s rotated. Heart remains enlarged. Aorta is dense. Patchy basilar density is again seen. IMPRESSION: Probable basilar atelectasis. Heart size may be accentuated due to rotation.
[2021-03-27] MEDS ORDERED: IPRATROPIUM-ALBUTEROL 3 ML NEB INHALATION PRN (15:29)
--- NOTE | 2021-03-27 15:34 | P.PN ---
Subjective Progress Note Date: 03/27/21 New onset CHF Mr. 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 Patient states that he started to have pain in his epigastric area early this morning, he describes like a discomfort feeling that would make him belch in his epigastric area. Denies having any nausea or vomiting. He denies having any lower abdominal pain. Patient states that he has history of ventral hernia. He denies having any constipation or diarrhea. He did not report any aggravating or relieving factors. Pain has been constant in the epigastric area. He denies having any difficulty in breathing. Patient has COPD and is on 4 L of oxygen at home. He denies having any sick contacts. Denies having any swelling of his lower extremities. No orthopnea or PND. He states recently he has lost his appetite and [facility] of the [facility] and pelvis. Patient denies having any loss of consciousness or syncopal episodes. Denies having any headaches blurring of vision or weakness of his extremities. In the ER, patient's vital signs temperature 98.7, heart rate 75, respiratory 18, blood pressure 142/75, saturating at 98% on the 4 L of oxygen. On reviewing his labs white count of 5.4, hemoglobin 9.8, platelets 173. Sodium 140, potassium 4.3, chloride 104, bicarb 30, BUN 17, creatinine 0.84, magnesium 1.5, AST 17, AlT 9, albumin 3.3, amylase 34, lipase 172. Coronary wires PCR is negative. Troponins 2 less than 0.012. 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 On 03/26/2021 - patient is sitting up in the bedside appears to be no acute distress. Patient states that he still has mild epigastric discomfort. He states that not quite is helping him with his low back pain as well. He states that his difficulty in breathing effort as baseline. He denies having any chest pain or palpitations. No complaints of orthopnea or PND. He denies having any swelling of his lower extremities. Patient denies having any lower abdominal pain nausea vomiting or diarrhea. He denies having any dysuria or hematuria. On reviewing his vitals temperature 98.5, heart rate 80s to 100s, blood pressure 178/88, saturating about 90 on 4 L of oxygen. On reviewing his labs white count of 9, hemoglobin is 10.9, platelets of 157. Sodium is 136, but pressure 4.1, chloride 101, bicarbonate 29, BUN 15, creatinine 0.9. Urine analysis is positi ve for 1+ protein and negative for nitrates and leukocyte esterase. Patient had a CAT scan of the abdomen and pelvis showing dilated urinary bladder and mildly enlarged prostate at 5.5 cm. There is a regular enlargement of the urinary bladder. He had echocardiogram done this morning showing left ventricular systolic function ejection fraction 20-25%. 03/27/2021 Patient is seen and evaluated in follow-up requiring more oxygen as he is extremely winded and severely dyspneic with minimal exertion and during conversation. Patient normally wears 4 L of oxygen and is requiring 5 L per nursing staff and continues to be dyspneic. Oxygen saturation was reevaluated and oxygen was 84% on 4 L and transitioned to 5 L and ranging from 91-94% SpO2. Patient also has continued lower back pain and had continued retention with over 1-1/2 L of urine removed during straight catheterization yesterday. Instructed nursing staff to insert indwelling Crane catheter to monitor strict I&O. Patient was seen and evaluated by urology recommending continuing indwelling Crane catheter and has started patient on Flomax. Will add duo nebs an increase to 4 times a day and as needed. Continue to encourage incentive spirometer at least 10 times every hour while awake. Chest x-ray ordered shows probable ba silar atelectasis with a dense aorta and heart enlargement. Cardiology is following. Patient also slightly tachycardic and will increase metoprolol to twice daily. Patient is maintained on Lovenox and will continue. Norvasc discontinued by cardiology. White blood count slightly elevated at 11.13, hemoglobin is 10.9, sodium is 139 with a potassium of 3.7 and current creatinine is 1.2. Magnesium is 1.7. Review of systems: Constitutional: No reports of fatigue, fever, or chills Cardiovascular: No reports of chest pain or palpitations Respiratory: reports increasing shortness of breath with minimal exertion GI: No reports of nausea, vomiting, or diarrhea : No reports of dysuria or retention, now has indwelling Crane catheter Neurovascular: reports generalized weakness All medications have been reviewed Objective - Vital Signs Vital signs: Vital Signs Temp 97.6 F 03/27/21 08:51 Pulse 76 03/27/21 08:51 Resp 20 03/27/21 08:51 BP 96/52 03/27/21 08:51 Pulse Ox 96 03/27/21 08:51 Intake & Output 03/26/21 03/27/21 03/27/21 18:59 06:59 18:59 Output Total 1900 1700 Balance -1900 -1700 Output: Urine 1900 1700 Straight 1900 650 Other: Voiding Method Indwelling Catheter Indwelling Catheter # Voids 2 # Bowel Movements 0 - Exam GENERAL: The patient is alert and oriented x3, appears to be in acute respirat ory distress. HEENT: Pupils are round and equally reacting to light. EOMI. No scleral icterus. no conjunctival pallor. CARDIOVASCULAR: S1 and S2 present. No murmurs, rubs, or gallops. PULMONARY: Diminished breath sounds bilaterally with some scattered rhonchi and expiratory wheezing noted. ABDOMEN: Distended. Soft, nontender, normoactive bowel sounds. Large ventral hernia. No fluid thrill appreciated. MUSCULOSKELETAL: No joint swelling or deformity. EXTREMITIES: No cyanosis, clubbing, or pedal edema. NEUROLOGICAL: Gross neurological examination did not reveal any focal deficits. Diffusely weak - Labs CBC & Chem 7: 03/27/21 04:19 03/27/21 04:19 Labs: Abnormal Lab Results - Last 24 Hours (Table) 03/26/21 03/26/21 03/27/21 Range/Units 15:36 15:45 07:13 POC Glucose (mg/dL) 216 H 180 H (75-99) mg/dL Urine Protein 1+ H (Negative) Urine Glucose (UA) 1+ H (Negative) Assessment and Plan Assessment: New onset congestive heart failure ejection fraction 20-25% Chronic hypoxic respiratory failure on 4 L of oxygen at home COPD Hypomagnesemia Urinary retention Coronary artery disease status post stenting Hypertension Alcohol use disorder History of colectomy Mild protein calorie malnutrition Enlarged prostate at 5.5 cm Urinary bladder thickening on CAT scan of the abdomen/pelvis PLAN: Patient had an echocardiogram done yesterday showing ejection fraction of 20-25%, that is new. Cardiology following. Patient continues on oral Lasix and continues with indwelling Crane catheter as he was retaining over 1-1/2 L of urine and urinalysis was negative. Patient continues to be extremely dyspneic and will continue with DuoNeb's and add as needed as well. Patient requiring more than a two night hospitalization given the severity of his symptoms and extreme dyspnea and weakness. Patient to be continued on current medication regimen. Further recommendations to follow depending on the clinical course of the patient. Need to discuss CODE STATUS with family and patient. Patient requiring more oxygen normally wears 4 L via nasal cannula and continues to be extremely dyspneic and is currently on 5 L and being transferred to [facility] for close monitoring. Continue with indwelling Crane catheter for urinary retention per urology recommendations as he was evaluated by urology today. Patient was also started on Flomax and will continue. Prognosis is guarded.
--- NOTE | 2021-03-27 16:11 | P.GSCN ---
History of Present Illness Consult date: 03/27/21 Reason for Consult: urinary retention History of present illness: this is an 80-year-old male admitted hospital with chest discomfort. Urology is consulted for urinary retention, he underwent a CT abdomen and pelvis that demonstrated evidence of distended bladder. He was straight cathed with return of 1.9 L of urine, he indicated at baseline he does have difficulty voiding. Complains of intermittent weak stream and straining with urination. He does complain of incomplete bladder emptying. Denies any gross hematuria or dysuria. He does have history of prostate cancer, treated with radiation approximately 15 years ago, he is unsure what his most recent PSA is. Denies any previous history of urinary retention. He currently has a catheter in place, draining clear yellow urine Review of Systems - Constitutional Denies fever, Denies weight loss - EENT Ears, nose, mouth and throat: Denies dysphagia - Cardiovascular Reports chest pain - Gastrointestinal Reports abdominal pain - Genitourinary Reports urinary retention, Denies dysuria, Denies flank pain - Integumentary Denies rash, Denies unusual bruising - Neurological Denies headaches, Denies syncope Past Medical History Past Medical History: Chest Pain / Angina, COPD, Hypertension Additional Past Medical History / Comment(s): at home 02 4lpm Last Myocardial Infarction Date:: unknown History of Any Multi-Drug Resistant Organisms: None Reported Past Surgical History: Hernia Repair Additional Past Surgical History / Comment(s): right eye surgery with implant. heart cath with stent (long time ago). Part of colon removed secondary to cancerous polyps. No treatment required post-op. Past Anesthesia/Blood Transfusion Reactions: No Reported Reaction Date of Last Stent Placement:: unknown Past Psychological History: No Psychological Hx Reported Smoking Status: Former smoker Past Alcohol Use History: Daily Past Drug Use History: None Reported Medications and Allergies Home Medications Medication Instructions Recorded Confirmed Type Ascorbic Acid [Vitamin C] 250 mg PO BID 03/25/21 03/25/21 History Aspirin EC [Ecotrin Low Dose] 81 mg PO DAILY 03/25/21 03/25/21 History Atorvastatin [Lipitor] 80 mg PO HS 03/25/21 03/25/21 History Carvedilol [Coreg] 12.5 mg PO AC-BID 03/25/21 03/25/21 History Cyanocobalamin (Vitamin B-12) 1,000 mcg PO DAILY 03/25/21 03/25/21 History [Vitamin B-12] Diclofenac Sodium [Voltaren Gel] 1 applic TOPICAL TID PRN 03/25/21 03/25/21 Hi story Ferrous Sulfate [Feosol] 325 mg PO BID 03/25/21 03/25/21 History Fluticasone Propion/Salmeterol 1 puff INHALATION RT-BID 03/25/21 03/25/21 History [Fluticasone-Salmeterol 250-50] Furosemide [Lasix] 20 mg PO DAILY 03/25/21 03/25/21 History Ipratropium-Albuterol Nebulize 3 ml INHALATION RT-QID 03/25/21 03/25/21 History [Duoneb 0.5 mg-3 mg/3 ml Soln] Ketoconazole 2% Shampoo [Nizoral] 1 applic TOPICAL MOWEFR 03/25/21 03/25/21 History Losartan Potassium 100 mg PO DAILY 03/25/21 03/25/21 History Montelukast [Singulair] 10 mg PO HS 03/25/21 03/25/21 History [place]-3 Fatty Acids/Fish Oil [Fish 1 cap PO DAILY 03/25/21 03/25/21 History Oil 1,000 mg Softgel] Pantoprazole Sodium [Protonix] 40 mg PO BID 03/25/21 03/25/21 History Tiotropium [place] [Spiriva 2 puff INHALATION RT-DAILY 03/25/21 03/25/21 History Respimat] Vit C/E/Zn/Coppr/Lutein/Zeaxan 1 cap PO BID 03/25/21 03/25/21 History [Preservision Areds 2 Softgel] amLODIPine [Norvasc] 5 mg PO DAILY 03/25/21 03/25/21 History glipiZIDE [Glucotrol] 5 mg PO AC-BID 03/25/21 03/25/21 History metFORMIN HCL 1,000 mg PO BID 03/25/21 03/25/21 History Allergies Allergy/AdvReac Type Severity Reaction Status Date / Time Penicillins AdvReac Rash/Hives Verified 03/25/21 10:19 Surgical - Exam Vital Signs Temp Pulse Resp BP Pulse Ox 98.7 F 75 18 142/75 98 03/25/21 05:07 03/25/21 05:07 03/25/21 05:07 03/25/21 05:07 03/25/21 05:07 - General well developed, well nourished, no distress, no pain - Eyes PERRL, normal ocular movement - ENT normal nares, normal mucosa - Respiratory normal expansion, normal respiratory effort - Abdomen Abdomen: soft, non tender, no distended - Psychiatric oriented to time, oriented to person, oriented to place Results - Labs 03/27/21 04:19 03/27/21 04:19 Abnormal Lab Results - Last 24 Hours (Table) 03/26/21 03/27/21 03/27/21 Range/Units 15:45 04:19 04:19 WBC 11.13 H (4.50-10.00) X 10*3/uL RBC 3.37 L (4.40-5.60) X 10*6/uL Hgb 10.9 L (13.0-17.0) g/dL Hct 32.6 L (39.6-50.0) % MCH 32.3 H (27.0-32.0) pg Immature Gran # 0.09 H (0.00-0.04) X 10*3/uL Neutrophils # 9.89 H (1.80-7.70) X 10*3/uL Lymphocytes # 0.37 L (0.90-5.00) X 10*3/uL Eosinophils # 0 L (0.04-0.35) X 10*3/uL Est GFR (CKD-EPI)NonAf 56.0 L (60.0-200.0) Glucose 166 H (70-110) mg/dL POC Glucose (mg/dL) (75-99) mg/dL Urine Protein 1+ H (Negative) Urine Glucose (UA) 1+ H (Negative) 03/27/21 Range/Units 07:13 WBC (4.50-10.00) X 10*3/uL RBC (4.40-5.60) X 10*6/uL Hgb (13.0-17.0) g/dL Hct (39.6-50.0) % MCH (27.0-32.0) pg Immature Gran # (0.00-0.04) X 10*3/uL Neutrophils # (1.80-7.70) X 10*3/uL Lymphocytes # (0.90-5.00) X 10*3/uL Eosinophils # (0.04-0.35) X 10*3/uL Est GFR (CKD-EPI)NonAf (60.0-200.0) Glucose (70-110) mg/dL POC Glucose (mg/dL) 180 H (75-99) mg/dL Urine Protein (Negative) Urine Glucose (UA) (Negative) Diabetes panel 03/27/21 Range/Units 04:19 Sodium 139 (135-145) mmol/L Potassium 3.7 (3.5-5.5) mmol/L Chloride 102 (96-109) mmol/L Carbon Dioxide 27.0 (21.6-31.8) mmol/L BUN 19.0 (9.0-27.0) mg/dL Creatinine 1.2 (0.6-1.5) mg/dL Glucose 166 H (70-110) mg/dL Calcium 8.8 (8.7-10.3) mg/dL Calcium panel 03/27/21 Range/Units 04:19 Calcium 8.8 (8.7-10.3) mg/dL Pituitary panel 03/27/21 Range/Units 04:19 Sodium 139 (135-145) mmol/L Potassium 3.7 (3.5-5.5) mmol/L Chloride 102 (96-109) mmol/L Carbon Dioxide 27.0 (21.6-31.8) mmol/L BUN 19.0 (9.0-27.0) mg/dL Creatinine 1.2 (0.6-1.5) mg/dL Glucose 166 H (70-110) mg/dL Calcium 8.8 (8.7-10.3) mg/dL Adrenal panel 03/27/21 Range/Units 04:19 Sodium 139 (135-145) mmol/L Potassium 3.7 (3.5-5.5) mmol/L Chloride 102 (96-109) mmol/L Carbon Dioxide 27.0 (21.6-31.8) mmol/L BUN 19.0 (9.0-27.0) mg/dL Creatinine 1.2 (0.6-1.5) mg/dL Glucose 166 H (70-110) mg/dL Calcium 8.8 (8.7-10.3) mg/dL Assessment and Plan Assessment: 80 -year-old male with urinary retention, he was straight cathed for 1.9 L. Has voiding dysfunction at baseline, previous history of prostate cancer treated w ith radiation. 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
[2021-03-27] MEDS: TAMSULOSIN 0.4 MG CAP.ER.24H PO SCH (17:42)
[2021-03-27] MEDS: ATORVASTATIN 80 MG TAB PO SCH (20:23)
[2021-03-27] MEDS: MONTELUKAST 10 MG TAB PO SCH (20:24)
[2021-03-27 21:37] LABS: Glucose,Whole Blood 259 mg/dL (75-99)
[2021-03-28] MEDS: HYDROcodone/APAP 5-325MG 1 EACH TAB PO PRN ×2 (01:19→17:50)
[2021-03-28] MEDS: glipiZIDE 5 MG TAB PO SCH ×2 (06:46→17:48)
[2021-03-28] MEDS: PANTOPRAZOLE 40 MG TABLET PO SCH ×2 (08:57→21:07)
[2021-03-28] MEDS: METOPROLOL SUCCINATE (ER) 25 MG TAB.ER.24H PO SCH ×2 (08:57→21:07)
[2021-03-28] MEDS: ASCORBIC ACID 500 MG TAB PO SCH ×2 (08:57→21:07)
[2021-03-28] MEDS: ENOXAPARIN 40 MG/0.4 ML SYRINGE SQ SCH (08:57)
[2021-03-28] MEDS: FERROUS SULFATE 325 MG TAB PO SCH ×2 (08:57→21:07)
[2021-03-28] MEDS: ASPIRIN 81 MG PO SCH (08:57)
[2021-03-28] MEDS: VIT A,C & E-LUTEIN-MINERALS 1 EACH TAB PO SCH ×2 (08:58→21:08)
[2021-03-28] MEDS: CYANOCOBALAMIN 500 MCG TAB PO SCH (08:58)
[2021-03-28] MEDS: FUROSEMIDE 20 MG TAB PO SCH (08:58)
[2021-03-28] MEDS: SYMBICORT 80-4.5 MCG INHALER INHALATION SCH ×2 (09:14→20:25)
[2021-03-28] MEDS: IPRATROPIUM-ALBUTEROL 3 ML NEB INHALATION SCH ×4 (09:14→20:13)
[2021-03-28 11:42] LABS: Basophils % (A) 0 %; Eosinophils # (A) 0.1 k/uL (0-0.7); Eosinophils % (A) 1 %; HCT 29.9 % (39.0-53.0); HGB 10.5 gm/dL (13.0-17.5); Lymphocytes # (A) 0.4 k/uL (1.0-4.8); Lymphocytes % (A) 6 %; MCH 33.4 pg (25.0-35.0); MCHC 35.3 g/dL (31.0-37.0); MCV 94.6 fL (80.0-100.0); Mean Platelet Volume 8.3; Monocytes # (A) 0.3 k/uL (0-1.0); Monocytes % (A) 5 %; Neutrophils # (A) 5.1 k/uL (1.3-7.7); Neutrophils % (A) 86 %; Platelet Count 130 k/uL (150-450); RBC 3.16 m/uL (4.30-5.90); RDW 12.6 % (11.5-15.5)
[2021-03-28 11:53] LABS: Calcium 8.4 mg/dL (8.4-10.2); Magnesium 1.8 mg/dL (1.6-2.3); Potassium 3.9 mmol/L (3.5-5.1)
--- NOTE | 2021-03-28 12:35 | P.PN ---
Subjective This is an 80-year-old gentleman with past medical history of coronary artery disease with PCI (details unkown), Diabetes, Alcohol abuse, COPD, hypertension, dyslipidemia. He follows up at the [facility] in [place]. We are requested to see as a consult here on the observation unit for chest discomfort. He underwent stenting with unknown details at this point and he stayed long time ago. This time she woke up from sleep complaining of is calm. He is pointing to the epigastric area. No pain in the chest. No shortness of breath or sweating or d izziness or lightheadedness or loss of consciousness or syncope. On examination he does have clearly epigastric discomfort. He stated that the pain in the epigastric area is radiating to his back. The patient stated that he drinks alcohol every day and he drinks 3 shots of whiskey every day. Troponin negative x 3. 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 Echocardiogram completed reveals ejection fraction 20-25%, severe global hypokinesis of LV, mild mitral regurgitation, and mild tricuspid regurgitation. Records obtained from the [place] No details in the records about patient's cardiac catheterization or stenting information Echocardiogram 04/2017 revealed ejection fraction 335%, inferoposterior akinesis noted. Stage I diastolic dysfunction, small pericardial effusion Lexiscan stress test February 2017 revealed Small apical defect that could represent apical thinning or attenuation artifact, No ischemia. Nonischemic cardiomyopathy with LVEF 35%. 03/27/2021: Patient became hypoxic and tachypneic requiring High flow nasal cannula and was transferred to [address] [place] [address]. Chest Xray- Patient is slightly rotated, Bibasilar atelectasis, Heart size appears stable does not seem enlarged. 03/28/2021: Patient seen and examined at bedside, currently on a Ventimask 15 L, satting 94%. He denies any chest pain. He is slightly short of breath. Blood pressure 96/51, heart rate 70s, afebrile. He is currently being maintained on aspirin 81 mg daily, atorvastatin 80 mg nightly, Lasix 20 mg daily, losartan 100 mg daily, metoprolol succinate 25 mg twice a day. Telemetry reviewed, patient in sinus mechanism with occasional PVCs. PHYSICAL EXAM: VITAL SIGNS: Reviewed. GENERAL: Short of breath, slightly labored NECK: Supple. No JVD or thyromegaly LUNGS: Respirations even and unlabored. Lungs are diminished to auscultation bilaterally. HEART: Regular rate and rhythm. S1 and S2 heard. EXTREMITIES: Normal range of motion. No clubbing or cyanosis. Peripheral pulses intact. No lower extremity edema ASSESSMENT: Epigastric pain Acute hypoxic respiratory failure Coronary artery disease with previous PCI, exact details unknown Chronic hypoxic respiratory failure on home oxygen History of Hypertension History of Type 2 Diabetes Dyslipidemia Alcohol abuse COPD Cardiomyopathy- EF [facility] non-ischemic cardiomyopathy PLAN: -Check BNP and D-dimer -Patient is hypotensive, does not seem to be fluid overloaded on exam, will continue current Lasix dose and adjust as needed -Continue metoprolol 25mg BID -Recommend pulmonary consultation -Avoid cardizem due to patients cardiomyopathy -Continue additional cardiac medications -Continue telemetry monitoring -Further recommendations pending patient course Nurse practitioner note has been reviewed by physician. Signing provider agrees with the documented findings, assessment, and plan of care. Objective - Vital Signs Vital signs: Vital Signs Temp 98.1 F 03/28/21 04:00 Pulse 87 03/28/21 09:28 Resp 20 03/28/21 04:00 BP 89/54 03/28/21 04:00 Pulse Ox 93 L 03/28/21 09:14 Intake & Output 03/27/21 03/28/21 03/28/21 18:59 06:59 18:59 Intake Total 240 Output Total 700 Balance -700 240 Weight 91 kg Intake: Oral 240 Output: Urine 700 Other: Voiding Method Indwelling Catheter Indwelling Catheter - Labs CBC & Chem 7: 03/28/21 11:13 03/28/21 11:13 Labs: Abnormal Lab Results - Last 24 Hours (Table) 03/27/21 Range/Units 21:36 POC Glucose (mg/dL) 259 H (75-99) mg/dL
[2021-03-28] MEDS: NON FORMULARY DRUG (Omega-3 Fatty Acids/Fish Oil [Fish Oil 1,000 Mg Softgel] 1 EACH Capsul PO SCH (12:47)
[2021-03-28] MEDS: LOSARTAN 50 MG TAB PO SCH (12:47)
--- NOTE | 2021-03-28 15:28 | P.PN ---
Subjective Progress Note Date: 03/28/21 New onset CHF Mr. 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 Patient states that he started to have pain in his epigastric area early this morning, he describes like a discomfort feeling that would make him belch in his epigastric area. Denies having any nausea or vomiting. He denies having any lower abdominal pain. Patient states that he has history of ventral hernia. He denies having any constipation or diarrhea. He did not report any aggravating or relieving factors. Pain has been constant in the epigastric area. He denies having any difficulty in breathing. Patient has COPD and is on 4 L of oxygen at home. He denies having any sick contacts. Denies having any swelling of his lower extremities. No orthopnea or PND. He states recently he has lost his appetite and [facility] of the abdomen and pelvis. Patient denies having any loss of consciousness or syncopal episodes. Denies having any headaches blurring of vision or weakness of his extremities. In the ER, patient's vital signs temperature 98.7, heart rate 75, respiratory 18, blood pressure 142/75, saturating at 98% on the 4 L of oxygen. On reviewing his labs white count of 5.4, hemoglobin 9.8, platelets 173. Sodium 140, potassium 4.3, chloride 104, bicarb 30, BUN 17, creatinine 0.84, magnesium 1.5, AST 17, AlT 9, albumin 3.3, amylase 34, lipase 172. Coronary wires PCR is negative. Troponins 2 less than 0.012. 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 On 03/26/2021 - patient is sitting up in the bedside appears to be no acute distress. Patient states that he still has mild epigastric discomfort. He states that not quite is helping him with his low back pain as well. He states that his difficulty in breathing effort as baseline. He denies having any chest pain or palpitations. No complaints of orthopnea or PND. He denies having any swelling of his lower extremities. Patient denies having any lower abdominal pain nausea vomiting or diarrhea. He denies having any dysuria or hematuria. On reviewing his vitals temperature 98.5, heart rate 80s to 100s, blood pressure 178/88, saturating about 90 on 4 L of oxygen. On reviewing his labs white count of 9, hemoglobin is 10.9, platelets of 157. Sodium is 136, but pressure 4.1, chloride 101, bicarbonate 29, BUN 15, creatinine 0.9. Urine analysis is positi ve for 1+ protein and negative for nitrates and leukocyte esterase. Patient had a CAT scan of the abdomen and pelvis showing dilated urinary bladder and mildly enlarged prostate at 5.5 cm. There is a regular enlargement of the urinary bladder. He had echocardiogram done this morning showing left ventricular systolic function ejection fraction 20-25%. 03/27/2021 Patient is seen and evaluated in follow-up requiring more oxygen as he is extremely winded and severely dyspneic with minimal exertion and during conversation. Patient normally wears 4 L of oxygen and is requiring 5 L per nursing staff and continues to be dyspneic. Oxygen saturation was reevaluated and oxygen was 84% on 4 L and transitioned to 5 L and ranging from 91-94% SpO2. Patient also has continued lower back pain and had continued retention with over 1-1/2 L of urine removed during straight catheterization yesterday. Instructed nursing staff to insert indwelling Crane catheter to monitor strict I&O. Patient was seen and evaluated by urology recommending continuing indwelling Crane catheter and has started patient on Flomax. Will add duo nebs an increase to 4 times a day and as needed. Continue to encourage incentive spirometer at least 10 times every hour while awake. Chest x-ray ordered shows probable ba silar atelectasis with a dense aorta and heart enlargement. Cardiology is following. Patient also slightly tachycardic and will increase metoprolol to twice daily. Patient is maintained on Lovenox and will continue. Norvasc discontinued by cardiology. White blood count slightly elevated at 11.13, hemoglobin is 10.9, sodium is 139 with a potassium of 3.7 and current creatinine is 1.2. Magnesium is 1.7. 03/28/2021 Patient was seen and evaluated currently on selected unit being closely monit ored. Patient is more awake and alert today sitting up at the side of the bed continues to be dyspneic and maintained on Ventimask with a flow rate of 15 maintaining oxygen saturations of 94%. Continues to be dyspneic although states feels somewhat better. Patient is maintained on 20 mg of oral Lasix and will continue. Cardiology following. White blood count trending down and 6.0 with a hemoglobin of 10.5. D-dimer was done and is positive at 2.0. BNP found to be 17,800. Magnesium is 1.8 with a sodium of 135 and potassium is 3.9 current creatinine slightly elevated at 1.41. Patient denies any worsening shortness of breath or chest pain. Patient denies abdominal discomfort or nausea or vomiting and states he does not have much of an appetite and the food here is not desirable. Will add ensure and encourage the patient to continue eating as tolerated. Review of systems: Constitutional: No reports of fatigue, fever, or chills Cardiovascular: No reports of chest pain or palpitations Respiratory: reports shortness of breath with minimal exertion GI: No reports of nausea, vomiting, or diarrhea : No reports of dysuria or retention, now has indwelling Crane catheter Neurovascular: reports generalized weakness All medications have been reviewed Objective - Vital Signs Vital signs: Vital Signs Temp 98.1 F 03/28/21 04:00 Pulse 86 03/28/21 04:00 Resp 20 03/28/21 04:00 BP 89/54 03/28/21 04:00 Pulse Ox 92 L 03/28/21 04:00 Intake & Output 03/27/21 03/28/21 03/28/21 18:59 06:59 18:59 Output Total 700 Balance -700 Weight 91 kg Output: Urine 700 Other: Voiding Method Indwelling Catheter Indwelling Catheter - Exam GENERAL: The patient is alert and oriented x3, not in any acute distress. Sitting up at the side of the bed currently on Ventimask HEENT: Pupils are round and equally reacting to light. EOMI. No scleral icterus. no conjunctival pallor. CARDIOVASCULAR: S1 and S2 present. No murmurs, rubs, or gallops. PULMONARY: Diminished breath sounds bilaterally with some scattered rhonchi and expiratory wheezing noted. Expiratory wheezing improved on exam today ABDOMEN: Distended. Soft, nontender, normoactive bowel sounds. Large ventral hernia. No fluid thrill appreciated. MUSCULOSKELETAL: No joint swelling or deformity. EXTREMITIES: No cyanosis, clubbing, or pedal edema. NEUROLOGICAL: Gross neurological examination did not reveal any focal deficits. Diffusely weak - Labs CBC & Chem 7: 03/28/21 11:13 03/28/21 11:13 Labs: Abnormal Lab Results - Last 24 Hours (Table) 03/27/21 03/27/21 03/27/21 Range/Units 04:19 04:19 21:36 WBC 11.13 H (4.50-10.00) X 10*3/uL RBC 3.37 L (4.40-5.60) X 10*6/uL Hgb 10.9 L (13.0-17.0) g/dL Hct 32.6 L (39.6-50.0) % MCH 32.3 H (27.0-32.0) pg Immature Gran # 0.09 H (0.00-0.04) X 10*3/uL Neutrophils # 9.89 H (1.80-7.70) X 10*3/uL Lymphocytes # 0.37 L (0.90-5.00) X 10*3/uL Eosinophils # 0 L (0.04-0.35) X 10*3/uL Est GFR (CKD-EPI)NonAf 56.0 L (60.0-200.0) Glucose 166 H (70-110) mg/dL POC Glucose (mg/dL) 259 H (75-99) mg/dL Assessment and Plan Assessment: New onset congestive heart failure ejection fraction 20-25% Chronic hypoxic respiratory failure on 4 L of oxygen at home COPD Hypomagnesemia, improved Urinary retention, has indwelling Crane catheter and evaluated by urology recommending to continue with catheter for the next 2 weeks until outpatient follow-up Coronary artery disease status post stenting Hypertension Alcohol use disorder History of colectomy Mild protein calorie malnutrition Enlarged prostate at 5.5 cm Urinary bladder thickening on CAT scan of the abdomen/pelvis Full code PLAN: Patient had an echocardiogram done yesterday showing ejection fraction of 20- 25%, that is new. Cardiology following. Patient continues on oral Lasix and continues with indwelling Crane catheter. Patient currently on Ventimask and continues to be dyspneic although appears more comfortable today and not in acute respiratory distress. continue with DuoNeb's . Patient requiring more than a two night hospitalization given the severity of his symptoms and extreme dyspnea and weakness. Patient to be continued on current medication regimen. Further recommendations to follow depending on the clinical course of the patient. CODE STATUS was discussed with the patient and the family and per daughter Flaquita would like to continue with full code at this time. Prognosis is guarded.
[2021-03-28] MEDS: TAMSULOSIN 0.4 MG CAP.ER.24H PO SCH (17:48)
[2021-03-28] MEDS: MONTELUKAST 10 MG TAB PO SCH (21:07)
[2021-03-28] MEDS: ATORVASTATIN 80 MG TAB PO SCH (21:07)
[2021-03-29] MEDS: glipiZIDE 5 MG TAB PO SCH ×2 (06:51→17:08)
[2021-03-29] MEDS: IPRATROPIUM-ALBUTEROL 3 ML NEB INHALATION SCH ×4 (07:46→19:33)
[2021-03-29] MEDS: SYMBICORT 80-4.5 MCG INHALER INHALATION SCH ×2 (07:46→19:33)
[2021-03-29 08:31] LABS: Calcium 8.4 mg/dL (8.4-10.2); Magnesium 1.9 mg/dL (1.6-2.3); Potassium 3.9 mmol/L (3.5-5.1)
[2021-03-29] MEDS: ASPIRIN 81 MG PO SCH (08:31)
[2021-03-29] MEDS: ASCORBIC ACID 500 MG TAB PO SCH ×2 (08:31→20:16)
[2021-03-29] MEDS: ENOXAPARIN 40 MG/0.4 ML SYRINGE SQ SCH (08:32)
[2021-03-29] MEDS: PANTOPRAZOLE 40 MG TABLET PO SCH ×2 (08:32→20:17)
[2021-03-29] MEDS: FERROUS SULFATE 325 MG TAB PO SCH ×2 (08:32→20:17)
[2021-03-29] MEDS: CYANOCOBALAMIN 500 MCG TAB PO SCH (08:32)
[2021-03-29] MEDS: HYDROcodone/APAP 5-325MG 1 EACH TAB PO PRN ×2 (08:32→18:59)
[2021-03-29] MEDS: VIT A,C & E-LUTEIN-MINERALS 1 EACH TAB PO SCH ×2 (08:32→20:17)
[2021-03-29] MEDS: LOSARTAN 50 MG TAB PO SCH (08:32)
[2021-03-29] MEDS: METOPROLOL SUCCINATE (ER) 25 MG TAB.ER.24H PO SCH ×2 (08:32→20:17)
[2021-03-29] MEDS: FUROSEMIDE 20 MG TAB PO SCH (08:32)
[2021-03-29] MEDS: NON FORMULARY DRUG (Omega-3 Fatty Acids/Fish Oil [Fish Oil 1,000 Mg Softgel] 1 EACH Capsul PO SCH (12:15)
--- NOTE | 2021-03-29 12:50 | P.CNPUL ---
History of Present Illness Consult date: 03/29/21 Requesting physician: Devan Rosa Reason for consult: COPD, hypoxemia Chief complaint: epigastric pain History of present illness: 80-year-old white male patient with past medical history of COPD , on home oxygen at 4 L, former smoker, quit smoking 30 years ago, does carry 40 years of smoking history of 1-1/2 packs per day, patient thinks that she sees a quality review specialist at the [facility] but does not follow with a quality review specialist locally. his maintenance inhalers including Spiriva respiratory at, and Wixel 250 /50, and albuterol rescue inhaler. medical history includes coronary artery disease with previous stenting, and the details are not available to us, hypertension, diabetes mellitus, cancerous colon polyps with history of colectomy, and history of skin cancer. patient presented to the emergency department on 03/25/2021 with complaints of epigastric chest discomfort , and pain in his posterior back, no fever or chills, his cough is at his baseline, no worsening, no phlegm production, no complaints of hemoptysis, he did feel slightly more short of breath. no swelling in his lower extremities. patient does drink on a regular basis, he states he usually drinks 6 ounces of whiskey on a regular basis. chest x-ray on admission showed cardiomegaly, and patchy airspace disease. patient was tested for COVID-19 and was found to be negative, he did complete his COVID-19 vaccination, he is unsure what type a vaccine he received but he did receive 2 injections. 3 sets of cardiac troponins were less than 0.012, however his proBNP was elevated at 17,800. No leukocytosis, white blood cell count was 5.4, Hgb 11.8, hemoglobin was 11.8, his amylase and lipase were within normal limits, CT of the abdomen and pelvis showed some patchy atelectasis at the lung bases, no pericardial effusion, enlarged heart, no pleural effusions, a couple small cyst in the liver, there were calcified gallstones, spleen was intact, stomach with intact, no pancreatic mass, and bile ducts were not dilated. Patient was seen by cardiology, his echocardiogram showed severe global hypokinesis, severely impaired left ventricular systolic function with an EF between 20-25%. There was no evidence of aortic regurgitation, there was a mild mitral regurgitation and mild tricuspid regurgitation, no evidence of pulmonary hypertension and his right ventricular systolic pressure was less than 35 mmHg. Patient is on oral Lasix 20 mg daily, his follow-up chest x-ray changes to show increased interstitium. Probable basilar atelectasis, and accentuated heart size. No wheezing, no coughing, no phlegm production. She is producing urine, he is in negative 300 fluid balance over the last 24 hours. This morning patient is on 50% Ventimask and his pulse ox is 97%, this was cut back to 40% and patient maintain his O2 saturations at 94%. He normally wears 4 L of oxygen on a regular basis. Review of Systems All systems: negative Constitutional: Denies chills, Denies fever Eyes: denies blurred vision, denies pain Ears, nose, mouth and throat: Denies headache, Denies sore throat Cardiovascular: Denies chest pain, Denies shortness of breath Respiratory: Reports dyspnea, Denies cough Gastrointestinal: Denies abdominal pain, Denies diarrhea, Denies nausea, Denies vomiting Musculoskeletal: Denies myalgias Integumentary: Denies pruritus, Denies rash Neurological: Denies numbness, Denies weakness Psychiatric: Denies anxiety, Denies depression Endocrine: Denies fatigue, Denies weight change Past Medical History Past Medical History: Chest Pain / Angina, COPD, Hypertension Additional Past Medical History / Comment(s): at home 02 4lpm Last Myocardial Infarction Date:: unknown History of Any Multi-Drug Resistant Organisms: None Reported Past Surgical History: Hernia Repair Additional Past Surgical History / Comment(s): right eye surgery with implant. heart cath with stent (long time ago). Part of colon removed secondary to cancerous polyps. No treatment required post-op. Past Anesthesia/Blood Transfusion Reactions: No Reported Reaction Date of Last Stent Placement:: unknown Past Psychological History: No Psychological Hx Reported Smoking Status: Former smoker Past Alcohol Use History: Daily Past Drug Use History: None Reported Medications and Allergies Home Medications Medication Instructions Recorded Confirmed Type Ascorbic Acid [Vitamin C] 250 mg PO BID 03/25/21 03/25/21 History Aspirin EC [Ecotrin Low Dose] 81 mg PO DAILY 03/25/21 03/25/21 History Atorvastatin [Lipitor] 80 mg PO HS 03/25/21 03/25/21 History Carvedilol [Coreg] 12.5 mg PO AC-BID 03/25/21 03/25/21 History Cyanocobalamin (Vitamin B-12) 1,000 mcg PO DAILY 03/25/21 03/25/21 History [Vitamin B-12] Diclofenac Sodium [Voltaren Gel] 1 applic TOPICAL TID PRN 03/25/21 03/25/21 History Ferrous Sulfate [Feosol] 325 mg PO BID 03/25/21 03/25/21 History Fluticasone Propion/Salmeterol 1 puff INHALATION RT-BID 03/25/21 03/25/21 History [Fluticasone-Salmeterol 250-50] Furosemide [Lasix] 20 mg PO DAILY 03/25/21 03/25/21 History Ipratropium-Albuterol Nebulize 3 ml INHALATION RT-QID 03/25/21 03/25/21 History [Duoneb 0.5 mg-3 mg/3 ml Soln] Ketoconazole 2% Shampoo [Nizoral] 1 applic TOPICAL MOWEFR 03/25/21 03/25/21 History Losartan Potassium 100 mg PO DAILY 03/25/21 03/25/21 History Montelukast [Singulair] 10 mg PO HS 03/25/21 03/25/21 History [place]-3 Fatty Acids/Fish Oil [Fish 1 cap PO DAILY 03/25/21 03/25/21 History Oil 1,000 mg Softgel] Pantoprazole Sodium [Protonix] 40 mg PO BID 03/25/21 03/25/21 History Tiotropium [place] [Spiriva 2 puff INHALATION RT-DAILY 03/25/21 03/25/21 History Respimat] Vit C/E/Zn/Coppr/Lutein/Zeaxan 1 cap PO BID 03/25/21 03/25/21 History [Preservision Areds 2 Softgel] amLODIPine [Norvasc] 5 mg PO DAILY 03/25/21 03/25/21 History glipiZIDE [Glucotrol] 5 mg PO AC-BID 03/25/21 03/25/21 History metFORMIN HCL 1,000 mg PO BID 03/25/21 03/25/21 History Allergies Allergy/AdvReac Type Severity Reaction Status Date / Time Penicillins AdvReac Rash/Hives Verified 03/25/21 10:19 Physical Exam Vitals: Vital Signs Temp Pulse Pulse Pulse Resp BP Pulse Ox 03/29/21 08:16 94 L 03/29/21 08:07 83 03/29/21 08:00 99.6 F 89 18 95 03/29/21 07:50 83 03/29/21 04:00 97.8 F 84 20 110/72 90 L 03/29/21 02:00 82 86 20 03/29/21 00:00 97.8 F 82 20 101/53 97 03/28/21 20:23 101 H 18 03/28/21 20:13 92 23 96 03/28/21 20:00 97.8 F 86 18 94/57 95 03/28/21 15:28 97.4 F L 88 16 91/50 97 03/28/21 15:25 81 03/28/21 15:17 73 03/28/21 13:15 78 86 16 03/28/21 12:22 88 03/28/21 12:10 88 03/28/21 12:00 97.5 F L 78 16 107/65 94 L Intake and Output 03/28/21 03/29/21 03/29/21 22:59 06:59 14:59 Intake Total 240 Output Total 450 0 Balance 240 -450 0 Intake: Oral 240 Output: Urine 450 0 Stool 0 Other: Voiding Method Indwelling Catheter Indwelling Catheter # Voids 0 # Bowel Movements 0 Weight 92 kg GENERAL EXAM: Alert, very pleasant, 80-year-old white female, on 50% Ventimask, with pulse ox of 97% comfortable in no apparent distress. HEAD: Normocephalic/atraumatic. EYES: Normal reaction of pupils, equal size. Conjunctiva pink, sclera white. NOSE: Clear with pink turbinates. THROAT: No erythema or exudates. NECK: No masses, no JVD, no thyroid enlargement, no adenopathy. CHEST: No chest wall deformity. Symmetrical expansion. LUNGS: Equal air entry with no crackles, wheeze, rhonchi or dullness. CVS: Regular rate and rhythm, normal S1 and S2, no gallops, no murmurs, no rubs ABDOMEN: Soft, nontender. No hepatosplenomegaly, normal bowel sounds, no guarding or rigidity. EXTREMITIES: No clubbing, no edema, no cyanosis, 2+ pulses and upper and lower extremities. MUSCULOSKELETAL: Muscle strength and tone normal. SPINE: No scoliosis or deformity SKIN: No rashes CENTRAL NERVOUS SYSTEM: Alert and oriented -3. No focal deficits, tone is normal in all 4 extremities. PSYCHIATRIC: Alert and oriented -3. Appropriate affect. Intact judgment and insight. Results - Laboratory Findings CBC and BMP: 03/28/21 11:13 03/29/21 07:34 PT/INR, D-dimer PT 10.1 sec (9.0-12.0) 03/25/21 05:33 INR 0.9 (<1.2) 03/25/21 05:33 D-Dimer 2.00 mg/L FEU (<0.60) H 03/28/21 11:13 Abnormal lab findings: Abnormal Labs 03/25/21 03/25/21 03/26/21 05:33 05:33 05:44 WBC RBC 3.56 L Hgb 11.8 L Hct 33.5 L MCV MCH Plt Count Immature Gran # Neutrophils # Lymphocytes # 0.8 L Eosinophils # D-Dimer Sodium BUN Creatinine Est GFR (CKD-EPI)NonAf Glucose 157 H 128 H POC Glucose (mg/dL) Calcium 8.3 L Magnesium 1.5 L Total Bilirubin 1.7 H Total Protein 5.9 L 5.5 L Albumin 3.3 L 3.40 L HDL Cholesterol 30.0 L Urine Protein Urine Glucose (UA) 03/26/21 03/26/21 03/26/21 05:44 15:36 15:45 WBC RBC 3.41 L Hgb 10.9 L Hct 33.4 L MCV 97.9 H MCH Plt Count Immature Gran # Neutrophils # Lymphocytes # Eosinophils # D-Dimer Sodium BUN Creatinine Est GFR (CKD-EPI)NonAf Glucose POC Glucose (mg/dL) 216 H Calcium Magnesium Total Bilirubin Total Protein Albumin HDL Cholesterol Urine Protein 1+ H Urine Glucose (UA) 1+ H 03/27/21 03/27/21 03/27/21 04:19 04:19 07:13 WBC 11.13 H RBC 3.37 L Hgb 10.9 L Hct 32.6 L MCV MCH 32.3 H Plt Count Immature Gran # 0.09 H Neutrophils # 9.89 H Lymphocytes # 0.37 L Eosinophils # 0 L D-Dimer Sodium BUN Creatinine Est GFR (CKD-EPI)NonAf 56.0 L Glucose 166 H POC Glucose (mg/dL) 180 H Calcium Magnesium Total Bilirubin Total Protein Albumin HDL Cholesterol Urine Protein Urine Glucose (UA) 03/27/21 03/28/21 03/28/21 21:36 11:13 11:13 WBC RBC 3.16 L Hgb 10.5 L Hct 29.9 L MCV MCH Plt Count 130 L Immature Gran # Neutrophils # Lymphocytes # 0.4 L Eosinophils # D-Dimer Sodium 135 L BUN 34 H Creatinine 1.41 H Est GFR (CKD-EPI)NonAf Glucose 155 H POC Glucose (mg/dL) 259 H Calcium Magnesium Total Bilirubin Total Protein Albumin HDL Cholesterol Urine Protein Urine Glucose (UA) 03/28/21 03/29/21 11:13 07:34 WBC RBC Hgb Hct MCV MCH Plt Count Immature Gran # Neutrophils # Lymphocytes # Eosinophils # D-Dimer 2.00 H Sodium 135 L BUN 31 H Creatinine 1.29 H Est GFR (CKD-EPI)NonAf Glucose 158 H POC Glucose (mg/dL) Calcium Magnesium Total Bilirubin Total Protein Albumin HDL Cholesterol Urine Protein Urine Glucose (UA) - Diagnostic Findings Chest x-ray: report reviewed, image reviewed Assessment and Plan Plan: Assessment: #1. Acute on chronic hypoxic respiratory failure, related to acute exacerbation of CHF with systolic dysfunction. ProBNP was elevated at 17,800. Patient does have underlying history of COPD which does not seem to be active at this time. Over 90 PCR was negative, chest x-ray showed interstitial prominence #2. Epigastric discomfort of unknown etiology, CT of the abdomen and pelvis showed a couple of small cortical cysts, no hydronephrosis, no acute abnormality involving the gallbladder or common bile duct. Amylase and lipase were negativ e #3. Advanced COPD, on home oxygen usually at 4 L/m #4. 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 History of EtOH, chronic and ongoing, patient consumes 6 ounces of whiskey on a daily basis #6. History of CAD, with previous stenting, the details are unknown to us at this time #7. Diabetes mellitus type 2 #8. Hypertension #9. Urinary retention, status post urinary catheter placement Plan: Continue breathing treatments Continue Symbicort Continue oral dose Lasix Chest x-ray reviewed Labs reviewed Patient was seen and examined by Dr. Goodwin COPD does not seem to be active at this time Chest x-ray shows findings consistent with interstitial prominence, and CHF exacerbation We dropped the FiO2 down to 35% per Ventimask, which is what the patient wears on a regular basis at home He may be switched to nasal cannula No need for steroids No need for antibiotics We'll continue to follow I performed a history & physical examination of the patient and discussed their management with my nurse practitioner, Mary Otero. I reviewed the nurse practitioner's note and agree with the documented findings and plan of care. Lung sounds are positive for diminished breath sounds. The findings and the impression was discussed with the patient. I attest to the documentation by the nurse practitioner. Time with Patient: Greater than 30
--- NOTE | 2021-03-29 13:00 | P.PN ---
Subjective Progress Note Date: 03/29/21 New onset CHF Mr. 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 Patient states that he started to have pain in his epigastric area early this morning, he describes like a discomfort feeling that would make him belch in his epigastric area. Denies having any nausea or vomiting. He denies having any lower abdominal pain. Patient states that he has history of ventral hernia. He denies having any constipation or diarrhea. He did not report any aggravating or relieving factors. Pain has been constant in the epigastric area. He denies having any difficulty in breathing. Patient has COPD and is on 4 L of oxygen at home. He denies having any sick contacts. Denies having any swelling of his lower extremities. No orthopnea or PND. He states recently he has lost his appetite [facility] of the [facility] and pelvis. Patient denies having any loss of consciousness or syncopal episodes. Denies having any headaches blurring of vision or weakness of his extremities. In the ER, patient's vital signs temperature 98.7, heart rate 75, respiratory 18, blood pressure 142/75, saturating at 98% on the 4 L of oxygen. On reviewing his labs white count of 5.4, hemoglobin 9.8, platelets 173. Sodium 140, potassium 4.3, chloride 104, bicarb 30, BUN 17, creatinine 0.84, magnesium 1.5, AST 17, AlT 9, albumin 3.3, amylase 34, lipase 172. Coronary wires PCR is negative. Troponins 2 less than 0.012. 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 On 03/26/2021 - patient is sitting up in the bedside appears to be no acute distress. Patient states that he still has mild epigastric discomfort. He states that not quite is helping him with his low back pain as well. He states that his difficulty in breathing effort as baseline. He denies having any chest pain or palpitations. No complaints of orthopnea or PND. He denies having any swelling of his lower extremities. Patient denies having any lower abdominal pain nausea vomiting or diarrhea. He denies having any dysuria or hematuria. On reviewing his vitals temperature 98.5, heart rate 80s to 100s, blood pressure 178/88, saturating about 90 on 4 L of oxygen. On reviewing his labs white count of 9, hemoglobin is 10.9, platelets of 157. Sodium is 136, but pressure 4.1, chloride 101, bicarbonate 29, BUN 15, creatinine 0.9. Urine analysis is positi ve for 1+ protein and negative for nitrates and leukocyte esterase. Patient had a CAT scan of the abdomen and pelvis showing dilated urinary bladder and mildly enlarged prostate at 5.5 cm. There is a regular enlargement of the urinary bladder. He had echocardiogram done this morning showing left ventricular systolic function ejection fraction 20-25%. 03/27/2021 Patient is seen and evaluated in follow-up requiring more oxygen as he is extremely winded and severely dyspneic with minimal exertion and during conversation. Patient normally wears 4 L of oxygen and is requiring 5 L per nursing staff and continues to be dyspneic. Oxygen saturation was reevaluated and oxygen was 84% on 4 L and transitioned to 5 L and ranging from 91-94% SpO2. Patient also has continued lower back pain and had continued retention with over 1-1/2 L of urine removed during straight catheterization yesterday. Instructed nursing staff to insert indwelling Crane catheter to monitor strict I&O. Patient was seen and evaluated by urology recommending continuing indwelling Crane catheter and has started patient on Flomax. Will add duo nebs an increase to 4 times a day and as needed. Continue to encourage incentive spirometer at least 10 times every hour while awake. Chest x-ray ordered shows probable ba silar atelectasis with a dense aorta and heart enlargement. Cardiology is following. Patient also slightly tachycardic and will increase metoprolol to twice daily. Patient is maintained on Lovenox and will continue. Norvasc discontinued by cardiology. White blood count slightly elevated at 11.13, hemoglobin is 10.9, sodium is 139 with a potassium of 3.7 and current creatinine is 1.2. Magnesium is 1.7. 03/28/2021 Patient was seen and evaluated currently on selected unit being closely monit ored. Patient is more awake and alert today sitting up at the side of the bed continues to be dyspneic and maintained on Ventimask with a flow rate of 15 maintaining oxygen saturations of 94%. Continues to be dyspneic although states feels somewhat better. Patient is maintained on 20 mg of oral Lasix and will continue. Cardiology following. White blood count trending down and 6.0 with a hemoglobin of 10.5. D-dimer was done and is positive at 2.0. BNP found to be 17,800. Magnesium is 1.8 with a sodium of 135 and potassium is 3.9 current creatinine slightly elevated at 1.41. Patient denies any worsening shortness of breath or chest pain. Patient denies abdominal discomfort or nausea or vomiting and states he does not have much of an appetite and the food here is not desirable. Will add ensure and encourage the patient to continue eating as tolerated. 03/29/2021 Patient is seen this morning in follow-up continues to be dyspneic stating he feels his breathing has not really any better and not any worse. Patient continues to be on Ventimask with a flow rate of 15 and an FiO2 of 50% maintaining 94% oxygen saturation. Patient had an episode of low-grade intermittent fever this morning of 99.6. He denies any chest pain or palpitations. Patient continues to not have much of an appetite and not eating very well. Sodium today is 135 with a potassium of 3.9, creatinine slightly improved at 1.29 and magnesium is 1.9. Monitoring Accu-Cheks closely and continue with oral antidiabetics for now. Patient continues to have low blood pressure and is maintained on oral Lasix at 20 mg daily. Cardiology following and pulmonary has been consulted and will await report. Review of systems: Constitutional: No reports of fatigue, fever, or chills Cardiovascular: No reports of chest pain or palpitations Respiratory: reports shortness of breath with minimal exertion GI: No reports of nausea, vomiting, or diarrhea : No reports of dysuria or retention, now has indwelling Crane catheter Neurovascular: reports generalized weakness All medications have been reviewed Objective - Vital Signs Vital signs: Vital Signs Temp 97.8 F 03/29/21 04:00 Pulse 83 03/29/21 08:07 Resp 20 03/29/21 04:00 BP 110/72 03/29/21 04:00 Pulse Ox 94 L 03/29/21 08:16 Intake & Output 03/28/21 03/29/21 03/29/21 18:59 06:59 18:59 Intake Total 1440 Output Total 450 0 Balance 1440 -450 0 Weight 92 kg Intake: Oral 1440 Output: Urine 450 0 Stool 0 Other: Voiding Method Indwelling Catheter Indwelling Catheter # Voids 0 # Bowel Movements 0 - Exam GENERAL: The patient is alert and oriented x3, not in any acute distress. Sitting up in bed currently on Ventimask HEENT: Pupils are round and equally reacting to light. EOMI. No scleral icterus. no conjunctival pallor. CARDIOVASCULAR: S1 and S2 present. No murmurs, rubs, or gallops. PULMONARY: Diminished breath sounds bilaterally with some scattered rhonchi. Aeration slightly improved ABDOMEN: Distended. Soft, nontender, normoactive bowel sounds. Large ventral hernia. No fluid thrill appreciated. MUSCULOSKELETAL: No joint swelling or deformity. EXTREMITIES: No cyanosis, clubbing, or pedal edema. NEUROLOGICAL: Gross neurological examination did not reveal any focal deficits. Diffusely weak - Labs CBC & Chem 7: 03/28/21 11:13 03/29/21 07:34 Labs: Abnormal Lab Results - Last 24 Hours (Table) 03/28/21 03/28/21 03/28/21 Range/Units 11:13 11:13 11:13 RBC 3.16 L (4.30-5.90) m/uL Hgb 10.5 L (13.0-17.5) gm/dL Hct 29.9 L (39.0-53.0) % Plt Count 130 L (150-450) k/uL Lymphocytes # 0.4 L (1.0-4.8) k/uL D-Dimer 2.00 H (<0.60) mg/L FEU Sodium 135 L (137-145) mmol/L BUN 34 H (9-20) mg/dL Creatinine 1.41 H (0.66-1.25) mg/dL Glucose 155 H (74-99) mg/dL Assessment and Plan Assessment: New onset congestive heart failure ejection fraction 20-25% Chronic hypoxic respiratory failure on 4 L of oxygen at home COPD, acute exacerbation Hypomagnesemia, improved Urinary retention, has indwelling Crane catheter and evaluated by urology recommending to continue with catheter for the next 2 weeks until outpatient follow-up Coronary artery disease status post stenting Hypertension Alcohol use disorder History of colectomy Mild protein calorie malnutrition Enlarged prostate at 5.5 cm Urinary bladder thickening on CAT scan of the abdomen/pelvis Full code PLAN: Cardiology following. Pulmonary has been consulted and pending at this time. Patient continues on oral Lasix and continues with indwelling Crane catheter. Patient currently on Ventimask and continues to be dyspneic. continue with DuoNeb's . Blood pressures have been on the lower side making it difficult to transition to IV Lasix for diuresis and cardiology is following. Patient to be continued on current medication regimen. Further recommendations to follow depending on the clinical course of the patient. Labs within normal limits and will repeat monitor closely. Prognosis is guarded.
--- NOTE | 2021-03-29 14:12 | P.PN ---
Subjective This is an 80-year-old gentleman with past medical history of coronary artery disease with PCI (details unkown), Diabetes, Alcohol abuse, COPD, hypertension, dyslipidemia. He follows up at the [facility] clinic in [place]. We are requested to see as a consult here on the observation unit for chest discomfort. He underwent stenting with unknown details at this point and he stayed long time ago. This time she woke up from sleep complaining of is calm. He is pointing to the epigastric area. No pain in the chest. No shortness of breath or sweating or d izziness or lightheadedness or loss of consciousness or syncope. On examination he does have clearly epigastric discomfort. He stated that the pain in the epigastric area is radiating to his back. The patient stated that he drinks alcohol every day and he drinks 3 shots of whiskey every day. Troponin negative x 3. 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 Echocardiogram completed reveals ejection fraction 20-25%, severe global hypokinesis of LV, mild mitral regurgitation, and mild tricuspid regurgitation. Records obtained from the CT No details in the records about patient's cardiac catheterization or stenting information Echocardiogram 04/2017 revealed ejection fraction 335%, inferoposterior akinesis noted. Stage I diastolic dysfunction, small pericardial effusion Lexiscan stress test February 2017 revealed Small apical defect that could represent apical thinning or attenuation artifact, No ischemia. Nonischemic cardiomyopathy with LVEF 35%. 03/27/2021: Patient became hypoxic and tachypneic requiring High flow nasal cannula and was transferred to [address] [place] [address]. Chest Xray- Patient is slightly rotated, Bibasilar atelectasis, Heart size appears stable does not seem enlarged. 03/29/2021: Patient seen and examined at bedside, currently on a Ventimask 15 L, satting 94%. He denies any chest pain and shortness of breath. Blood pressure 110/72 heart rate 70s, afebrile. He is currently being maintained on aspirin 81 mg daily, atorvastatin 80 mg nightly, Lasix 20 mg daily, losartan 100 mg daily, metoprolol succinate 25 mg twice a day. Telemetry reviewed, patient in sinus mechanism with occasional PVCs. PHYSICAL EXAM: VITAL SIGNS: Reviewed. GENERAL: Short of breath, slightly labored NECK: Supple. No JVD or thyromegaly LUNGS: Respirations even and unlabored. Lungs are slightly diminished to auscultation bilaterally. HEART: Regular rate and rhythm. S1 and S2 heard. EXTREMITIES: Normal range of motion. No clubbing or cyanosis. Peripheral pulses intact. No lower extremity edema ASSESSMENT: Epigastric pain Acute hypoxic respiratory failure Ischmic Cardiomyopathy- EF 20-25%, elevated BNP 17,800 Coronary artery disease with previous PCI, exact details unknown Chronic hypoxic respiratory failure on home oxygen History of Hypertension History of Type 2 Diabetes Dyslipidemia Alcohol abuse COPD Acute Kidney Injury PLAN: -Pulmonary consulted, do not think that patient's COPD to be active at this time. -From cardiology perspective, does not seem to be fluid overloaded on exam, will continue current Lasix dose and adjust as needed -FiO2 was dropped down to 35% per Ventimask, patient wears this on a regular basis at home -Continue metoprolol 25mg BID -Avoid cardizem due to patients cardiomyopathy -Continue additional cardiac medications -Continue telemetry monitoring -Further recommendations pending patient course Nurse practitioner note has been reviewed by physician. Signing provider agrees with the documented findings, assessment, and plan of care. Objective - Vital Signs Vital signs: Vital Signs Temp 99.6 F 03/29/21 08:00 Pulse 88 03/29/21 13:33 Resp 18 03/29/21 08:00 BP 110/72 03/29/21 04:00 Pulse Ox 94 L 03/29/21 08:16 Intake & Output 03/28/21 03/29/21 03/29/21 18:59 06:59 18:59 Intake Total 1440 420 Output Total 450 300 Balance 1440 -450 120 Weight 92 kg Intake: Oral 1440 420 Output: Urine 450 300 Stool 0 Other: Voiding Method Indwelling Catheter Indwelling Catheter Indwelling Catheter # Voids 0 # Bowel Movements 0 - Labs CBC & Chem 7: 03/28/21 11:13 03/29/21 07:34 Labs: Abnormal Lab Results - Last 24 Hours (Table) 03/29/21 Range/Units 07:34 Sodium 135 L (137-145) mmol/L BUN 31 H (9-20) mg/dL Creatinine 1.29 H (0.66-1.25) mg/dL Glucose 158 H (74-99) mg/dL
[2021-03-29 16:57] LABS: Glucose,Whole Blood 322 mg/dL (75-99)
[2021-03-29] MEDS: INSULIN ASPART (NovoLOG) 100 UNIT/ML VIAL SQ SCH ×2 (17:08→20:30)
[2021-03-29] MEDS: TAMSULOSIN 0.4 MG CAP.ER.24H PO SCH (17:08)
[2021-03-29] MEDS: ATORVASTATIN 80 MG TAB PO SCH (20:17)
[2021-03-29] MEDS: MONTELUKAST 10 MG TAB PO SCH (20:17)
[2021-03-29 20:47] LABS: Glucose,Whole Blood 180 mg/dL (75-99)
[2021-03-30 06:18] LABS: Glucose,Whole Blood 148 mg/dL (75-99)
[2021-03-30] MEDS: INSULIN ASPART (NovoLOG) 100 UNIT/ML VIAL SQ SCH ×2 (06:20→12:02)
[2021-03-30] MEDS: glipiZIDE 5 MG TAB PO SCH (06:43)
[2021-03-30] MEDS: HYDROcodone/APAP 5-325MG 1 EACH TAB PO PRN ×2 (07:45→16:20)
[2021-03-30] MEDS: SYMBICORT 80-4.5 MCG INHALER INHALATION SCH (08:01)
[2021-03-30] MEDS: IPRATROPIUM-ALBUTEROL 3 ML NEB INHALATION SCH ×3 (08:01→16:45)
[2021-03-30] MEDS: LOSARTAN 50 MG TAB PO SCH (08:21)
[2021-03-30] MEDS: CYANOCOBALAMIN 500 MCG TAB PO SCH (08:21)
[2021-03-30] MEDS: VIT A,C & E-LUTEIN-MINERALS 1 EACH TAB PO SCH (08:21)
[2021-03-30] MEDS: ASCORBIC ACID 500 MG TAB PO SCH (08:21)
[2021-03-30] MEDS: ENOXAPARIN 40 MG/0.4 ML SYRINGE SQ SCH (08:21)
[2021-03-30] MEDS: ASPIRIN 81 MG PO SCH (08:21)
[2021-03-30] MEDS: FUROSEMIDE 20 MG TAB PO SCH (08:21)
[2021-03-30] MEDS: FERROUS SULFATE 325 MG TAB PO SCH (08:21)
[2021-03-30] MEDS: METOPROLOL SUCCINATE (ER) 25 MG TAB.ER.24H PO SCH (08:21)
[2021-03-30] MEDS: PANTOPRAZOLE 40 MG TABLET PO SCH (08:21)
[2021-03-30] MEDS: NON FORMULARY DRUG (Omega-3 Fatty Acids/Fish Oil [Fish Oil 1,000 Mg Softgel] 1 EACH Capsul PO SCH (08:22)
[2021-03-30 08:28] VITALS: TEMP 98.4
--- NOTE | 2021-03-30 08:49 | XR ---
EXAMINATION TYPE: XR chest 1V portable DATE OF EXAM: 03/30/2021 COMPARISON: 03/27/2021 INDICATION: Dyspnea TECHNIQUE: Single frontal view of the chest is obtained. FINDINGS: The heart size is normal. The pulmonary vasculature is normal. There is some mild infiltrate above the right diaphragm. Correlate for atelectasis IMPRESSION: 1. Mild infiltrate at the right base may be related to atelectasis.
[2021-03-30 09:19] LABS: Calcium 8.4 mg/dL (8.4-10.2); Potassium 3.9 mmol/L (3.5-5.1)
[2021-03-30 11:33] LABS: Glucose,Whole Blood 260 mg/dL (75-99)
--- NOTE | 2021-03-30 11:43 | P.PN ---
Subjective This is an 80-year-old gentleman with past medical history of coronary artery disease with PCI (details unkown), Diabetes, Alcohol abuse, COPD, hypertension, dyslipidemia. He follows up at the [place] in [place]. We are requested to see as a consult here on the observation unit for chest discomfort. He underwent stenting with unknown details at this point and he stayed long time ago. This time she woke up from sleep complaining of is calm. He is pointing to the epigastric area. No pain in the chest. No shortness of breath or sweating or d izziness or lightheadedness or loss of consciousness or syncope. On examination he does have clearly epigastric discomfort. He stated that the pain in the epigastric area is radiating to his back. The patient stated that he drinks alcohol every day and he drinks 3 shots of whiskey every day. Troponin negative x 3. 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 Echocardiogram completed reveals ejection fraction 20-25%, severe global hypokinesis of LV, mild mitral regurgitation, and mild tricuspid regurgitation. Records obtained from the [place] No details in the records about patient's cardiac catheterization or stenting information Echocardiogram 04/2017 revealed ejection fraction 335%, inferoposterior akinesis noted. Stage I diastolic dysfunction, small pericardial effusion Lexiscan stress test February 2017 revealed Small apical defect that could represent apical thinning or attenuation artifact, No ischemia. Nonischemic cardiomyopathy with LVEF 35%. 03/27/2021: Patient became hypoxic and tachypneic requiring High flow nasal cannula and was transferred to [address] [place] [address]. Chest Xray- Patient is slightly rotated, Bibasilar atelectasis, Heart size appears stable does not seem enlarged. 03/30/2021: Patient seen and examined at bedside, currently has been weaned to 4L nasal cannula. Is comfortable. He denies any chest pain and shortness of breath. He states his breathing is much better. Blood pressure 115/65, heart rate 84, afebrile, maintaining oxygen saturation above 92% on 4 L nasal cannula He is currently being maintained on aspirin 81 mg daily, atorvastatin 80 mg nightly, Lasix 20 mg daily, losartan 100 mg daily, metoprolol succinate 25 mg twice a day. Telemetry reviewed, patient in sinus mechanism HR 80s, with occasional PVCs. PHYSICAL EXAM: VITAL SIGNS: Reviewed. GENERAL: Alert and oriented x 3, no acute distress. Does not appears short of breath. NECK: Supple. No JVD or thyromegaly LUNGS: Respirations even and unlabored. Lungs are slightly diminished to auscultation bilaterally. HEART: Regular rate and rhythm. S1 and S2 heard. EXTREMITIES: Normal range of motion. No clubbing or cyanosis. Peripheral p ulses intact. No lower extremity edema ASSESSMENT: Epigastric pain Acute hypoxic respiratory failure Ischmic Cardiomyopathy- EF 20-25%, elevated BNP 17,800 Coronary artery disease with previous PCI, exact details unknown Chronic hypoxic respiratory failure on home oxygen History of Hypertension History of Type 2 Diabetes Dyslipidemia Alcohol abuse COPD Acute Kidney Injury PLAN: -Pulmonary consulted, do not think that patient's COPD to be active at this time. -From cardiology perspective, does not seem to be fluid overloaded on exam. Edgard zheng is back at his baseline oxygen requirements, he has no edema. Will continue current Lasix dose at this time -Continue metoprolol 25mg BID, Losartan 100mg daily, statin and aspirin -Avoid cardizem due to patients cardiomyopathy -From cardiology perspective, patient is stable, no further changes or adjustments at this time. Per primary, plan for patient to be discharged to rehab Nurse practitioner note has been reviewed by physician. Signing provider agrees with the documented findings, assessment, and plan of care. Objective - Vital Signs Vital signs: Vital Signs Temp 98.4 F 03/30/21 08:00 Pulse 76 03/30/21 11:31 Resp 18 03/30/21 08:00 BP 115/65 03/30/21 08:00 Pulse Ox 93 L 03/30/21 08:00 Intake & Output 03/29/21 03/30/21 03/30/21 18:59 06:59 18:59 Intake Total 900 20 Output Total 475 0 700 Balance 425 0 -680 Weight 93.5 kg Intake: Oral 900 20 Output: Urine 475 700 Stool 0 0 Other: Voiding Method Indwelling Catheter Indwelling Catheter Indwelling Catheter # Voids 0 # Bowel Movements 0 0 - Labs CBC & Chem 7: 03/28/21 11:13 03/30/21 07:42 Labs: Abnormal Lab Results - Last 24 Hours (Table) 03/29/21 03/29/21 03/30/21 Range/Units 16:54 20:24 06:00 Sodium (137-145) mmol/L Carbon Dioxide (22-30) mmol/L BUN (9-20) mg/dL Glucose (74-99) mg/dL POC Glucose (mg/dL) 322 H 180 H 148 H (75-99) mg/dL 03/30/21 03/30/21 Range/Units 07:42 11:32 Sodium 135 L (137-145) mmol/L Carbon Dioxide 31 H (22-30) mmol/L BUN 25 H (9-20) mg/dL Glucose 135 H (74-99) mg/dL POC Glucose (mg/dL) 260 H (75-99) mg/dL
--- NOTE | 2021-03-30 14:06 | P.DS ---
Providers Date of admission: 03/27/21 11:45 Expected date of discharge: 03/30/21 Attending physician: Lizet Middleton Consults: 03/25/21 07:05 Consult Physician Routine Consulting Provider: Devan Rosa Consult Reason/Comments: epigastric pain Do you want consulting provider notified?: Yes 03/26/21 18:38 Consult Physician Routine Consulting Provider: Vladimir Collier Consult Reason/Comments: urinary retention Do you want consulting provider notified?: Yes 03/29/21 07:27 Consult Physician Routine Consulting Provider: Aime Goodwin Consult Reason/Comments: COPD Do you want consulting provider notified?: Yes Primary care physician: [facility] Hospital Course: Final diagnosis New onset congestive heart failure ejection fraction 20-25% Chronic hypoxic respiratory failure on 4 L of oxygen at home COPD, not in acute exacerbation Hypomagnesemia, improved Urinary retention, has indwelling Cleary catheter and evaluated by urology recommending to continue with catheter for the next 2 weeks until outpatient follow-up Coronary artery disease status post stenting Hypertension Alcohol use disorder History of colectomy Mild protein calorie malnutrition Enlarged prostate at 5.5 cm Urinary bladder thickening on CAT scan of the abdomen/pelvis Full code Discharge disposition Patient is being discharged in a stable condition with guarded prognosis to [facility]. Patient will follow-up with [facility] upon discharge. Patient also to follow-up with cardiology and urology in the outpatient setting. Total time taken is greater than 35 minutes. Hospital course Mr. 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 Patient states that he started to have pain in his epigastric area early this morning, he describes like a discomfort feeling that would make him belch in his epigastric area. Denies having any nausea or vomiting. He denies having any lower abdominal pain. Patient states that he has history of ventral hernia. He denies having any constipation or diarrhea. He did not report any aggravating or relieving factors. Pain has been constant in the epigastric area. He denies having any difficulty in breathing. Patient has COPD and is on 4 L of oxygen at home. He denies having any sick contacts. Denies having any swelling of his lower extremities. No orthopnea or PND. He states recently he has lost his appetite and was told by the [place] clinic to get a CAT scan of the abdomen and pelvis. Patient denies having any loss of consciousness or syncopal episodes. Denies having any headaches blurring of vision or weakness of his extremities. In the ER, patient's vital signs temperature 98.7, heart rate 75, respiratory 18, blood pressure 142/75, saturating at 98% on the 4 L of oxygen. On reviewing his labs white count of 5.4, hemoglobin 9.8, platelets 173. Sodium 140, potassium 4.3, chloride 104, bicarb 30, BUN 17, creatinine 0.84, magnesium 1.5, AST 17, AlT 9, albumin 3.3, amylase 34, lipase 172. Coronary wires PCR is negative. Troponins 2 less than 0.012. 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 03/30/2021 Patient is seen in follow-up this morning back to baseline and 4 L of oxygen via nasal cannula. She was seen and evaluated by cardiology along with pulmonary recommending continuing current medication regimen. Patient to continue with breathing inhalational treatments and Lasix 20 mg oral daily and will need follow-up outpatient with urology and continue with indwelling Cleary catheter for urinary retention along with cardiology outpatient. Patient is weak requiring ECF and possible long-term placement. Currently no reports of chest pain, shortness of breath, or palpitations. Patient is afebrile. No reports of nausea or vomiting and patient is tolerating diet. Patient will be discharged to ECF today. On exam vital signs are stable. Cardio S1, S2 are muffled. Respiratory shows diminished breath sounds at the bases with no wheezing or rhonchi noted. Abdomen is soft and nontender. Nervous system shows mild diffuse weakness. Please refer to medication reconciliation sheet for a list of medications. Patient Condition at Discharge: Fair Plan - Discharge Summary Discharge Rx Participant: No New Discharge Prescriptions: New Tamsulosin [Flomax] 0.4 mg PO PC-SUPPER cap.er.24h Nitroglycerin Sl Tabs [Nitrostat] 0.4 mg SUBLINGUAL Q5M PRN tab PRN Reason: Chest Pain INSULIN ASPART (NovoLOG) [NovoLOG (formulary)] 0 unit SQ ACHS vial Ipratropium-Albuterol Nebulize [Duoneb 0.5 mg-3 mg/3 ml Soln] 3 ml INHALATION RT-TID PRN ml PRN Reason: Shortness Of Breath Or Wheezing HYDROcodone/APAP 5-325MG [[place] 5-325] 1 each PO Q8H PRN #6 tab PRN Reason: Pain Metoprolol Succinate (ER) [Toprol XL] 25 mg PO BID tab.er.24h Continue Pantoprazole Sodium [Protonix] 40 mg PO BID Montelukast [Singulair] 10 mg PO HS Losartan Potassium 100 mg PO DAILY Ketoconazole 2% Shampoo [Nizoral] 1 applic TOPICAL MOWEFR Furosemide [Lasix] 20 mg PO DAILY [place]-3 Fatty Acids/Fish Oil [Fish Oil 1,000 mg Softgel] 1 cap PO DAILY Ferrous Sulfate [Iron (65 MG Elemental)] 325 mg PO BID Diclofenac Sodium [Voltaren Gel] 1 applic TOPICAL TID PRN PRN Reason: Pain Aspirin EC [Ecotrin Low Dose] 81 mg PO DAILY Ascorbic Acid [Vitamin C] 250 mg PO BID Vit C/E/Zn/Coppr/Lutein/Zeaxan [Preservision Areds 2 Softgel] 1 cap PO BID glipiZIDE [Glucotrol] 5 mg PO AC-BID Fluticasone Propion/Salmeterol [Fluticasone-Salmeterol 250-50] 1 puff INHALATION RT-BID Cyanocobalamin (Vitamin B-12) [Vitamin B-12] 1,000 mcg PO DAILY Atorvastatin [Lipitor] 80 mg PO HS Ipratropium-Albuterol Nebulize [Duoneb 0.5 mg-3 mg/3 ml Soln] 3 ml INHALATION RT-QID Tiotropium [place] [Spiriva Respimat] 2 puff INHALATION RT-DAILY Discontinued metFORMIN HCL 1,000 mg PO BID Carvedilol [Coreg] 12.5 mg PO AC-BID amLODIPine [Norvasc] 5 mg PO DAILY Discharge Medication List Ascorbic Acid [Vitamin C] 250 mg PO BID 03/25/21 [History] Aspirin EC [Ecotrin Low Dose] 81 mg PO DAILY 03/25/21 [History] Atorvastatin [Lipitor] 80 mg PO HS 03/25/21 [History] Cyanocobalamin (Vitamin B-12) [Vitamin B-12] 1,000 mcg PO DAILY 03/25/21 [History] Diclofenac Sodium [Voltaren Gel] 1 applic TOPICAL TID PRN 03/25/21 [History] Ferrous Sulfate [Iron (65 MG Elemental)] 325 mg PO BID 03/25/21 [History] Fluticasone Propion/Salmeterol [Fluticasone-Salmeterol 250-50] 1 puff INHALATION RT-BID 03/25/21 [History] Furosemide [Lasix] 20 mg PO DAILY 03/25/21 [History] Ipratropium-Albuterol Nebulize [Duoneb 0.5 mg-3 mg/3 ml Soln] 3 ml INHALATION RT-QID 03/25/21 [History] Ketoconazole 2% Shampoo [Nizoral] 1 applic TOPICAL MOWEFR 03/25/21 [History] Losartan Potassium 100 mg PO DAILY 03/25/21 [History] Montelukast [Singulair] 10 mg PO HS 03/25/21 [History] [place]-3 Fatty Acids/Fish Oil [Fish Oil 1,000 mg Softgel] 1 cap PO DAILY 03/25/21 [History] Pantoprazole Sodium [Protonix] 40 mg PO BID 03/25/21 [History] Tiotropium [place] [Spiriva Respimat] 2 puff INHALATION RT-DAILY 03/25/21 [History] Vit C/E/Zn/Coppr/Lutein/Zeaxan [Preservision Areds 2 Softgel] 1 cap PO BID 03/25/21 [History] glipiZIDE [Glucotrol] 5 mg PO AC-BID 03/25/21 [History] HYDROcodone/APAP 5-325MG [[place] 5-325] 1 each PO Q8H PRN #6 tab 03/30/21 [Rx] INSULIN ASPART (NovoLOG) [NovoLOG (formulary)] 0 unit SQ ACHS vial 03/30/21 [Rx] Ipratropium-Albuterol Nebulize [Duoneb 0.5 mg-3 mg/3 ml Soln] 3 ml INHALATION RT-TID PRN ml 03/30/21 [Rx] Metoprolol Succinate (ER) [Toprol XL] 25 mg PO BID tab.er.24h 03/30/21 [Rx] Nitroglycerin Sl Tabs [Nitrostat] 0.4 mg SUBLINGUAL Q5M PRN tab 03/30/21 [Rx] Tamsulosin [Flomax] 0.4 mg PO PC-SUPPER cap.er.24h 03/30/21 [Rx] Follow up Appointment(s)/Referral(s): Brad Maguire MD [STAFF PHYSICIAN] - 2 Weeks (discuss cleary catheter) Devan Rosa MD [STAFF PHYSICIAN] - 2 Weeks [facility]Clinic [Primary Care Provider] - 1-2 days Patient Instructions/Handouts: Chest Pain (ED) Activity/Diet/Wound Care/Special Instructions: Patient is going to ECF Activity as tolerated Continue with breathing inhalational treatments Continue to monitor blood sugars before meals and at bedtime and continue sliding scale as needed NovoLog sliding scale 0-150 equals 0 units 151-200 equals 2 units 201-250 equals 4 units 251-300 equals 6 units 301-350 equals 8 units 351-400 equals 10 units Please notify provider if blood sugar is 400 or above Continue heart healthy diabetic diet with ensures 3 times daily between meals Outpatient cardiology follow-up Follow-up with primary care provider upon discharge urology follow-up outpatient cleary catheter inserted 03/26/2021 for retention-keep in for 2 weeks Discharge Disposition: TRANSFER TO SNF/ECF
--- NOTE | 2021-03-30 14:35 | P.PN ---
Subjective Progress Note Date: 03/30/21 Principal diagnosis: Acute exacerbation of CHF with systolic dysfunction, COPD stable 80-year-old white male patient with past medical history of COPD , on home oxygen at 4 L, former smoker, quit smoking 30 years ago, does carry 40 years of smoking history of 1-1/2 packs per day, patient thinks that she sees a grounds restoration specialist at the [facility] but does not follow with a grounds restoration specialist locally. his maintenance inhalers including Spiriva respiratory at, and Wixel 250 /50, and albuterol rescue inhaler. medical history includes coronary artery disease with previous stenting, and the details are not available to us, hypertension, diabetes mellitus, cancerous colon polyps with history of colectomy, and history of skin cancer. patient presented to the emergency department on 03/25/2021 with complaints of epigastric chest discomfort , and pain in his posterior back, no fever or chills, his cough is at his baseline, no worsening, no phlegm production, no complaints of hemoptysis, he did feel slightly more short of breath. no swelling in his lower extremities. patient does drink on a regular basis, he states he usually drinks 6 ounces of whiskey on a regular basis. chest x-ray on admission showed cardiomegaly, and patchy airspace disease. patient was tested for COVID-19 and was found to be negative, he did complete his COVID-19 vaccination, he is unsure what type a vaccine he received but he did receive 2 injections. 3 sets of cardiac troponins were less than 0.012, however his proBNP was elevated at 17,800. No leukocytosis, white blood cell count was 5.4, Hgb 11.8, hemoglobin was 11.8, his amylase and lipase were within normal limits, CT of the abdomen and pelvis showed some patchy atelectasis at the lung bases, no pericardial ef fusion, enlarged heart, no pleural effusions, a couple small cyst in the liver, there were calcified gallstones, spleen was intact, stomach with intact, no pancreatic mass, and bile ducts were not dilated. Patient was seen by cardiology, his echocardiogram showed severe global hypokinesis, severely impaired left ventricular systolic function with an EF between 20-25%. There was no evidence of aortic regurgitation, there was a mild mitral regurgitation and mild tricuspid regurgitation, no evidence of pulmonary hypertension and his right ventricular systolic pressure was less than 35 mmHg. Patient is on oral Lasix 20 mg daily, his follow-up chest x-ray changes to show increased interstitium. Probable basilar atelectasis, and accentuated heart size. No wheezing, no coughing, no phlegm production. She is producing urine, he is in negative 300 fluid balance over the last 24 hours. This morning patient is on 50% Ventimask and his pulse ox is 97%, this was cut back to 40% and patient m aintain his O2 saturations at 94%. He normally wears 4 L of oxygen on a regular basis. On 03/30/2021 patient is seen in follow-up on selective care unit, he states he is breathing much easier, and feeling better today, he is currently on 4 L of oxygen and this is what he usually wears at home, his pulse ox is 92%, he is afebrile, hemodynamically stable. Today's chest x-ray shows mild infiltrate at the right base that could be related to atelectasis. No wheezing, no rhonchi on today's exam, he remains on oral Lasix, he is on nebulized treatments and Symbicort, we didn't think he needed any steroids or antibiotics. Today's labs have been reviewed, his renal function is improving, his creatinine is down to 1.14. No acute events overnight, no complaints of chest discomfort, no wheezing or coughing. Objective - Vital Signs Vital signs: Vital Signs Temp 98.4 F 03/30/21 08:00 Pulse 86 03/30/21 12:00 Resp 16 03/30/21 12:00 BP 116/49 03/30/21 12:00 Pulse Ox 92 L 03/30/21 12:00 Intake & Output 03/29/21 03/30/21 03/30/21 18:59 06:59 18:59 Intake Total 900 20 Output Total 475 0 700 Balance 425 0 -680 Weight 93.5 kg Intake: Oral 900 20 Output: Urine 475 700 Stool 0 0 Other: Voiding Method Indwelling Catheter Indwelling Catheter Indwelling Catheter # Voids 0 # Bowel Movements 0 0 - Exam GENERAL EXAM: Alert, very pleasant, 80-year-old white female, on 4 L of oxygen, with pulse ox of 92% comfortable in no apparent distress. HEAD: Normocephalic/atraumatic. EYES: Normal reaction of pupils, equal size. Conjunctiva pink, sclera white. NOSE: Clear with pink turbinates. THROAT: No erythema or exudates. NECK: No masses, no JVD, no thyroid enlargement, no adenopathy. CHEST: No chest wall deformity. Symmetrical expansion. LUNGS: Equal air entry with no crackles, wheeze, rhonchi or dullness. CVS: Regular rate and rhythm, normal S1 and S2, no gallops, no murmurs, no rubs ABDOMEN: Soft, nontender. No hepatosplenomegaly, normal bowel sounds, no guarding or rigidity. EXTREMITIES: No clubbing, no edema, no cyanosis, 2+ pulses and upper and lower extremities. MUSCULOSKELETAL: Muscle strength and tone normal. SPINE: No scoliosis or deformity SKIN: No rashes CENTRAL NERVOUS SYSTEM: Alert and oriented -3. No focal deficits, tone is normal in all 4 extremities. PSYCHIATRIC: Alert and oriented -3. Appropriate affect. Intact judgment and insight. - Labs CBC & Chem 7: 03/28/21 11:13 03/30/21 07:42 Labs: Abnormal Lab Results - Last 24 Hours (Table) 03/29/21 03/29/21 03/30/21 Range/Units 16:54 20:24 06:00 Sodium (137-145) mmol/L Carbon Dioxide (22-30) mmol/L BUN (9-20) mg/dL Glucose (74-99) mg/dL POC Glucose (mg/dL) 322 H 180 H 148 H (75-99) mg/dL 03/30/21 03/30/21 Range/Units 07:42 11:32 Sodium 135 L (137-145) mmol/L Carbon Dioxide 31 H (22-30) mmol/L BUN 25 H (9-20) mg/dL Glucose 135 H (74-99) mg/dL POC Glucose (mg/dL) 260 H (75-99) mg/dL Assessment and Plan Plan: Assessment: #1. Acute on chronic hypoxic respiratory failure, related to acute exacerbation of CHF with systolic dysfunction. ProBNP was elevated at 17,800. Patient does have underlying history of COPD which does not seem to be active at this time. Over 90 PCR was negative, chest x-ray showed interstitial prominence #2. Epigastric discomfort of unknown etiology, CT of the abdomen and pelvis showed a couple of small cortical cysts, no hydronephrosis, no acute abnormality involving the gallbladder or common bile duct. Amylase and lipase were negative #3. Advanced COPD, on home oxygen usually at 4 L/m #4. 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 History of EtOH, chronic and ongoing, patient consumes 6 ounces of whiskey on a daily basis #6. History of CAD, with previous stenting, the details are unknown to us at this time #7. Diabetes mellitus type 2 #8. Hypertension #9. Urinary retention, status post urinary catheter placement Plan: Patient is feeling better, breathing easier He is back on 4 L of oxygen this is his home dose of oxygen Continue nebulized treatments, Symbicort From pulmonary perspective patient could be considered for discharge if cleared by cardiology Follow-up with Dr. Goodwin in the office in the 7-10 days I performed a history & physical examination of the patient and discussed their management with my nurse practitioner, Mary Otero. I reviewed the nurse practitioner's note and agree with the documented findings and plan of care. Lung sounds are positive for diminished breath sounds. The findings and the impression was discussed with the patient. I attest to the documentation by the nurse practitioner. Time with Patient: Less than 30
[2021-03-30 16:25] VITALS: BP 140/75; PULSE 90; RESP 20
== END 2021-03-30 16:40 | DRG 291 ==
LOC: EC 05:05 → 6NMEDSUR 07:05 → OBSVTOIN 03-27 11:45 → 3SCARD 03-27 14:20
PROVIDERS: ADMIT Internal Medicine; ATTEND Internal Medicine
DX: I11.0 Hypertensive heart disease with heart failure (principal); J96.21 Acute and chronic respiratory failure with hypoxia; E44.1 Mild protein-calorie malnutrition; N17.9 Acute kidney failure, unspecified; I45.3 Trifascicular block; J44.1 Chronic obstructive pulmonary disease with (acute) exacerbation; J98.11 Atelectasis; I50.23 Acute on chronic systolic (congestive) heart failure; E11.9 Type 2 diabetes mellitus without complications; Z20.822 Contact with and (suspected) exposure to COVID-19; I25.5 Ischemic cardiomyopathy; I08.1 Rheumatic disorders of both mitral and tricuspid valves; I25.10 Atherosclerotic heart disease of native coronary artery without angina pectoris; E83.42 Hypomagnesemia; E78.5 Hyperlipidemia, unspecified; R33.8 Other retention of urine; N40.1 Benign prostatic hyperplasia with lower urinary tract symptoms; R39.14 Feeling of incomplete bladder emptying; R39.16 Straining to void; R39.12 Poor urinary stream; F10.10 Alcohol abuse, uncomplicated; Z99.81 Dependence on supplemental oxygen; Z79.82 Long term (current) use of aspirin; Z79.84 Long term (current) use of oral hypoglycemic drugs; Z79.899 Other long term (current) drug therapy; Z87.19 Personal history of other diseases of the digestive system; Z87.891 Personal history of nicotine dependence; Z95.5 Presence of coronary angioplasty implant and graft; Z90.49 Acquired absence of other specified parts of digestive tract; Z85.038 Personal history of other malignant neoplasm of large intestine; Z85.46 Personal history of malignant neoplasm of prostate; Z92.3 Personal history of irradiation; Z86.69 Personal history of other diseases of the nervous system and sense organs; Z85.828 Personal history of other malignant neoplasm of skin; Z98.890 Other specified postprocedural states; Z88.0 Allergy status to penicillin
CPT/HCPCS: 36415; 71045; 71046; 74176; 80048; 80053; 80061; 81001; 82150; 83690; 83735; 83880; 84153; 84484; 85025; 85379; 85610; 85730; 87635; 93005; 93306; 94640; 94760; 99285